=== PATIENT | female | born 1955 | race Two or more races ===

== ENCOUNTER 2024-04-25 08:27 | Inpatient (IN) | payer OTHER ==
[~2024-04-25] VITALS: Ht 165.1 cm; Wt 85.7 kg
[~2024-04-25 08:27] MED LIST: AMBIEN5 MG PO; FARXIGA5 MG PO; GABAPENTIN600 MG PO; HYOSCYAMINE0.125 M1 SL; JANUMET 50-1,01 EACH PO; LANTUS SOL100 UNIT/1 SQ; OXYC1TAB9 PO; PLAQUENIL; TAPAZOLE5 MG PO; ZETIA10 MG
[2024-04-25] MEDS ORDERED: FOLIC ACID20 MG PO (08:43)
[2024-04-25] MEDS ORDERED: VIVLODEX5 MG (08:43)
[2024-04-25] MEDS ORDERED: PANTOPRAZOLE SODIUM 40 MG/VIAL VIAL IV ONE (09:00)
[2024-04-25] MEDS ORDERED: 0.9 % SODIUM CHLORIDE 1,000 ML IV ONE (09:00)
[2024-04-25] MEDS ORDERED: NOREPINEPHRINE BITARTRATE 1 MG/ML AMPUL IV SCH (10:45)
[2024-04-25 10:48] LABS: HEMATOCRIT 29.9 % (36.0-45.00); HEMOGLOBIN 10.2 g/dL (12.0-15.00); MEAN CELL VOLUME 97.5 fL (80.00-100.00); MEAN CORPUSCULAR HEMOGLOBIN 33.1 pg (27.00-32.0); MEAN CORPUSCULAR HGB CONC 33.9 g/dl (32.0-36.0); PLATELET COUNT 208 K/uL (150-450); RED BLOOD COUNT 3.07 M/uL (4.00-6.00); RED CELL DISTRIBUTION WIDTH 13.5 % (11.5-14.5)
[2024-04-25 11:28] LABS: ABG PH 7.386 (7.35-7.45); ABG PO2 95.9 mmHg (80-100); ABG pCO2 31.7 mmHg (35-45); BASE EXCESS -5.2 mmol/l; BICARBONATE 18.6 mmol/l (23-25); SaO2 97.2 %; Tco2 19.6 mmol/l
[2024-04-25 11:35] LABS: ALBUMIN 3.7 gm/dL (3.4-5.0); BILIRUBIN TOTAL 0.53 mg/dL (0.3-1.2); CALCIUM 9.6 mg/dL (8.5-10.1); CREATININE SERUM 0.86 mg/dL (0.55-1.02); GFR 66.02; GLOBULINA 3.3 G/DL (2.4-3.5); POTASSIUM 4.78 mEq/L (3.5-5.1)
[2024-04-25 11:52] LABS: INR 1.03; PROTHROMBIN TIME 11.2 SECONDS (9.0-11.5)
[2024-04-25 12:14] LABS: allen test SATISFACTORY; o2 21 %; puncture site RADIAL LEFT
[2024-04-25 15:08] LABS: HEMATOCRIT 25.2 % (36.0-45.00); MEAN CELL VOLUME 97.6 fL (80.00-100.00); MEAN CORPUSCULAR HGB CONC 33.8 g/dl (32.0-36.0); PLATELET COUNT 169 K/uL (150-450); RED BLOOD COUNT 2.59 M/uL (4.00-6.00); RED CELL DISTRIBUTION WIDTH 13.6 % (11.5-14.5)
[2024-04-25 15:17] LABS: HEMOGLOBIN 8.5 g/dL (12.0-15.00); MEAN CORPUSCULAR HEMOGLOBIN 32.8 pg (27.00-32.0)
[2024-04-25 16:30] LABS: URINE APPEARANCE Clear; URINE BILIRRUBIN Negative (NEGATIVE); URINE BLOOD Negative; URINE COLOR Yellow; URINE KETONE Negative (NEGATIVE); URINE LEUKOCYTE Negative; URINE NITRATE Negative; URINE PROTEIN Negative (NEGATIVE); URINE UROBILINOGEN 0.2 E.U./dl
[2024-04-25] MEDS ORDERED: METRONIDAZOLE/SODIUM CHLORIDE 500 MG/100 ML PIGGYBACK IV ONE (16:30)
[2024-04-25 16:34] LABS: URINE BACTERIA 12.5 uL (0.0-1933); URINE EPITHELIAL CELLS 4.4 uL (0.0-38.8); URINE WBC 2.6 uL (0.0-23.2)
[2024-04-25 16:45] LABS: URINE CAST 0.15 uL (0.0-1.40); URINE GLUCOSE >=1000 MG/DL (NEGATIVE)
[2024-04-25] MEDS ORDERED: PANTOPRAZOLE SODIUM 40 MG/VIAL VIAL IV SCH (18:24)
[2024-04-25] MEDS ORDERED: CEFTRIAXONE SODIUM 2,000 MG in 0.9 % SODIUM CHLORIDE 100 ML IV SCH (18:24)
[2024-04-25] MEDS ORDERED: METRONIDAZOLE/SODIUM CHLORIDE 100 ML IV SCH (18:24)
[2024-04-25] MEDS ORDERED: ONDANSETRON HCL 4 MG in 0.9 % SODIUM CHLORIDE 50 ML IV PRN (18:30)
[2024-04-25] MEDS ORDERED: FUROsemide 20 MG/2 ML VIAL IV SCH (18:30)
[2024-04-25] MEDS ORDERED: INSULIN LISPRO 1,000 UNIT/10 ML UNITS SUBCUTANEO PRN (18:30)
[2024-04-25] MEDS ORDERED: 0.9 % SODIUM CHLORIDE 1,000 ML IV SCH (18:30)
[2024-04-25] MEDS ORDERED: ACETAMINOPHEN 500 MG GEL..CAP PO PRN (18:30)
[2024-04-25] MEDS ORDERED: HYOSCYAMINE SULFATE 0.125 MG TAB.SUBL PO ONE (18:30)
[2024-04-25] MEDS ORDERED: DEXTROSE 50 % IN WATER 0.5 G/ML DISP.SYRIN IV PRN (18:30)
[2024-04-26] VITALS (13 sets, daily range): BP systolic 87–139; BP diastolic 46–64; O2SAT 98–100
[2024-04-26] MEDS ORDERED: GABAPENTIN 300 MG CAPSULE PO PRN (19:15)
[2024-04-26] MEDS ORDERED: TEMAZEPAM 15 MG CAPSULE PO SCH (21:00)
[2024-04-27] VITALS (21 sets, daily range): BP systolic 85–149; BP diastolic 44–66; O2SAT 97–100
[2024-04-27 08:24] LABS: MEAN CELL VOLUME 94.4 fL (80.00-100.00); MEAN CORPUSCULAR HGB CONC 33.1 g/dl (32.0-36.0); RED BLOOD COUNT 2.33 M/uL (4.00-6.00); RED CELL DISTRIBUTION WIDTH 15.3 % (11.5-14.5)
[2024-04-27 08:27] LABS: MEAN CORPUSCULAR HEMOGLOBIN 31.3 pg (27.00-32.0)
[2024-04-27 08:29] LABS: HEMOGLOBIN 7.3 g/dL (12.0-15.00); PLATELET COUNT 126 K/uL (150-450)
[2024-04-27 08:55] LABS: ALBUMIN 2.6 gm/dL (3.4-5.0); BILIRUBIN TOTAL 0.52 mg/dL (0.3-1.2); CALCIUM 8.4 mg/dL (8.5-10.1); CREATININE SERUM 0.8 mg/dL (0.55-1.02); GFR 71.76; GLOBULINA 2.1 G/DL (2.4-3.5); POTASSIUM 4.81 mEq/L (3.5-5.1); TOTAL PROTEIN 4.7 gm/dL (6.4-8.2)
[2024-04-27 09:16] LABS: FREE TRIODOTIRONINE 0.96 pg/ml (2.18-3.98); T4 TOTAL 5.49 UG/DL (4.8-13.9); TSH 0.586 uIU/mL (0.358-3.74)
[2024-04-27 20:26] LABS: HEMATOCRIT 27.5 % (36.0-45.00); MEAN CELL VOLUME 91.3 fL (80.00-100.00); MEAN CORPUSCULAR HGB CONC 34.3 g/dl (32.0-36.0); RED BLOOD COUNT 3.01 M/uL (4.00-6.00); RED CELL DISTRIBUTION WIDTH 14.7 % (11.5-14.5)
[2024-04-27 20:27] LABS: MEAN CORPUSCULAR HEMOGLOBIN 31.2 pg (27.00-32.0)
[2024-04-27 20:28] LABS: HEMOGLOBIN 9.4 g/dL (12.0-15.00); PLATELET COUNT 122 K/uL (150-450)
[2024-04-28] VITALS (11 sets, daily range): BP systolic 102–137; BP diastolic 50–58; O2SAT 100
[2024-04-28 06:40] LABS: MEAN CELL VOLUME 90.2 fL (80.00-100.00); MEAN CORPUSCULAR HGB CONC 35.1 g/dl (32.0-36.0); RED BLOOD COUNT 2.62 M/uL (4.00-6.00); RED CELL DISTRIBUTION WIDTH 14.9 % (11.5-14.5)
[2024-04-28 07:37] LABS: HEMATOCRIT 23.6 % (36.0-45.00); MEAN CORPUSCULAR HEMOGLOBIN 31.6 pg (27.00-32.0); PLATELET COUNT 50 K/uL (150-450)
[2024-04-28 07:38] LABS: HEMOGLOBIN 8.3 g/dL (12.0-15.00)
[2024-04-28 09:06] LABS: CALCIUM 8.2 mg/dL (8.5-10.1); CREATININE SERUM 0.68 mg/dL (0.55-1.02); GFR 86.57; MAGNESIUM 1.7 mg/dL (1.8-2.4)
[2024-04-28 09:19] LABS: PHOSPHOROUS 1.7 mg/dL (2.5-4.9)
[2024-04-28] MEDS ORDERED: POTASSIUM PHOS,M-BASIC-D-BASIC 18 MM in 0.9 % SODIUM CHLORIDE 250 ML IV ONE (11:00)
[2024-04-28 12:08] LABS: COL EPI 100 SECONDS (82-175)
[2024-04-28] MEDS ORDERED: fentaNYL CITRATE 50 MCG/ML AMPUL IV PUSH ONE (15:15)
[2024-04-28] MEDS ORDERED: MIDAZOLAM HCL 2 MG/2 ML VIAL IV ONE (15:15)
[2024-04-28] MEDS ORDERED: DIPHENHYDRAMINE HCL 50 MG/ML VIAL 1ML IV ONE (15:15)
[2024-04-28] MEDS ORDERED: SOD FERRIC GLUC COMPLX/SUCROSE 62.5 MG in 0.9 % SODIUM CHLORIDE 50 ML IV SCH (17:00)
[2024-04-28] MEDS ORDERED: Cyanocobalamin/Mecobalamin 1 TAB.SL SL SCH (17:00)
[2024-04-28] MEDS ORDERED: FOLIC ACID 1 MG TABLET PO SCH (17:00)
[2024-04-28] MEDS ORDERED: FUROsemide 20 MG/2 ML VIAL IV SCH (18:30)
[2024-04-28] MEDS ORDERED: DEXTROSE 5 %-0.45 % SOD CHLORD 1,000 ML IV SCH (21:45)
[2024-04-29] VITALS (20 sets, daily range): BP systolic 89–134; BP diastolic 47–74; O2SAT 98–100
[2024-04-29 09:37] LABS: HEMATOCRIT 37.1 % (36.0-45.00); HEMOGLOBIN 12.6 g/dL (12.0-15.00); MEAN CELL VOLUME 89.9 fL (80.00-100.00); MEAN CORPUSCULAR HEMOGLOBIN 30.6 pg (27.00-32.0); MEAN CORPUSCULAR HGB CONC 34.1 g/dl (32.0-36.0); RED BLOOD COUNT 4.12 M/uL (4.00-6.00); RED CELL DISTRIBUTION WIDTH 16.2 % (11.5-14.5)
[2024-04-29 09:53] LABS: PLATELET COUNT 117 K/uL (150-450)
[2024-04-29 16:37] LABS: ob POSITIVE (NEGATIVE)
[2024-04-29] MEDS ORDERED: AMINO ACIDS 4.25 %/DEXTROSE 5% 1,000 ML PERIFERAL SCH (17:00)
[2024-04-29 17:31] LABS: HEMATOCRIT 25.3 % (36.0-45.00); MEAN CORPUSCULAR HGB CONC 33.9 g/dl (32.0-36.0); RED BLOOD COUNT 2.81 M/uL (4.00-6.00)
[2024-04-29 17:38] LABS: HEMOGLOBIN 8.6 g/dL (12.0-15.00); MEAN CORPUSCULAR HEMOGLOBIN 30.6 pg (27.00-32.0); PLATELET COUNT 111 K/uL (150-450)
[2024-04-29 18:00] LABS: MANUAL PLATELET COUNT 306
[2024-04-29 20:59] LABS: INR 1.16; PARTIAL THROMBOPLASTIN TIME 22.1 SECONDS (22.0-34.0); PROTHROMBIN TIME 12.5 SECONDS (9.0-11.5)
[2024-04-30 04:00] VITALS: BP 125/49; O2SAT 100
[2024-04-30 07:31] VITALS: BP 117/76; O2SAT 100
[2024-04-30 09:24] LABS: HEMATOCRIT 27.7 % (36.0-45.00); HEMOGLOBIN 9.8 g/dL (12.0-15.00); MEAN CELL VOLUME 85.9 fL (80.00-100.00); MEAN CORPUSCULAR HEMOGLOBIN 30.5 pg (27.00-32.0); MEAN CORPUSCULAR HGB CONC 35.5 g/dl (32.0-36.0); RED BLOOD COUNT 3.22 M/uL (4.00-6.00); RED CELL DISTRIBUTION WIDTH 15.4 % (11.5-14.5)
[2024-04-30 09:26] LABS: PLATELET COUNT 92 K/uL (150-450)
[2024-04-30 11:15] LABS: ALBUMIN 2.3 gm/dL (3.4-5.0); BILIRUBIN TOTAL 0.63 mg/dL (0.3-1.2); CREATININE SERUM 0.52 mg/dL (0.55-1.02); GFR 117.98; GLOBULINA 1.9 G/DL (2.4-3.5); POTASSIUM 3.63 mEq/L (3.5-5.1); TOTAL PROTEIN 4.2 gm/dL (6.4-8.2)
[2024-04-30 11:17] LABS: PHOSPHOROUS 1.5 mg/dL (2.5-4.9)
[2024-04-30 12:00] VITALS: BP 142/57; O2SAT 100
[2024-04-30] MEDS ORDERED: POTASSIUM PHOS,M-BASIC-D-BASIC 3 MM/ML VIAL IV NR (12:00)
[2024-04-30 12:38] LABS: D DIMER 4.01 MG/L
[2024-04-30 15:36] VITALS: BP 137/53; O2SAT 100
[2024-04-30] MEDS ORDERED: SODIUM CHLORIDE 0.45 % 1,000 ML IV SCH (19:30)
[2024-04-30 20:00] VITALS: BP 141/49; O2SAT 97
[2024-04-30 23:04] VITALS: BP 126/47; O2SAT 96
[2024-05-01 04:13] VITALS: BP 123/63; O2SAT 99
[2024-05-01 07:12] VITALS: BP 134/55; O2SAT 100
[2024-05-01] MEDS ORDERED: BUPIVACAINE HCL 30 ML VIAL IJ ONE (14:45)
[2024-05-01] MEDS ORDERED: LIDOCAINE HCL 1%/EPINEPHRINE 20ML VIAL IJ ONE (14:45)
[2024-05-01] MEDS ORDERED: OxyCODONE HCL 5 MG TABLET (ROXICODONE) PO PRN (17:45)
[2024-05-01 18:30] VITALS: BP 98/73; O2SAT 100
[2024-05-01] MEDS ORDERED: ACETAMINOPHEN 500 MG GEL..CAP PO SCH (20:00)
[2024-05-01 21:06] VITALS: BP 114/53; O2SAT 100
[2024-05-01 22:02] LABS: HEMATOCRIT 29.7 % (36.0-45.00); HEMOGLOBIN 10.1 g/dL (12.0-15.00); MEAN CELL VOLUME 88.7 fL (80.00-100.00); MEAN CORPUSCULAR HEMOGLOBIN 30.2 pg (27.00-32.0); MEAN CORPUSCULAR HGB CONC 34.1 g/dl (32.0-36.0); PLATELET COUNT 163 K/uL (150-450); RED BLOOD COUNT 3.35 M/uL (4.00-6.00); RED CELL DISTRIBUTION WIDTH 15.2 % (11.5-14.5)
[2024-05-01 23:24] VITALS: BP 117/54; O2SAT 100
[2024-05-02] VITALS (7 sets, daily range): BP systolic 102–137; BP diastolic 44–64; O2SAT 98–100
[2024-05-02] MEDS ORDERED: METOCLOPRAMIDE HCL 5 MG/ML VIAL IV SCH (01:00)
[2024-05-02] MEDS ORDERED: GABAPENTIN 300 MG CAPSULE PO SCH (01:00)
[2024-05-02 07:16] LABS: HEMATOCRIT 26.9 % (36.0-45.00); HEMOGLOBIN 9.4 g/dL (12.0-15.00); MEAN CELL VOLUME 88.4 fL (80.00-100.00); MEAN CORPUSCULAR HEMOGLOBIN 30.9 pg (27.00-32.0); PLATELET COUNT 139 K/uL (150-450); RED BLOOD COUNT 3.04 M/uL (4.00-6.00); RED CELL DISTRIBUTION WIDTH 15.3 % (11.5-14.5)
[2024-05-02 07:30] LABS: CALCIUM 7.6 mg/dL (8.5-10.1); CREATININE SERUM 0.74 mg/dL (0.55-1.02); GFR 78.52; POTASSIUM 3.78 mEq/L (3.5-5.1)
[2024-05-02 08:02] LABS: PHOSPHOROUS 1.4 mg/dL (2.5-4.9)
[2024-05-02] MEDS ORDERED: MAGNESIUM SULFATE IN WATER 4 GM/100 ML PIGGYBACK IV NR (08:45)
[2024-05-02] MEDS ORDERED: HYOSCYAMINE SULFATE 0.125 MG TAB.SUBL SL SCH (09:00)
[2024-05-02] MEDS ORDERED: POTASSIUM PHOS,M-BASIC-D-BASIC 3 MM/ML VIAL IV NR (09:51)
[2024-05-02] MEDS ORDERED: INSULIN NPH HUMAN ISOPHANE 1,000 UNITS/10 ML UNITS SUBCUTANEO SCH (21:00)
[2024-05-03 04:03] VITALS: BP 139/53; O2SAT 99
[2024-05-03 07:34] VITALS: BP 155/64; O2SAT 100
[2024-05-03] MEDS ORDERED: ENOXAPARIN SODIUM 40 MG/0.4 ML SYRINGE SUBCUTANEO SCH ×2 (09:00→17:00)
[2024-05-03] MEDS ORDERED: MEPERIDINE HCL/PF 25 MG/ML VIAL IV PRN (13:45)
[2024-05-03 13:46] VITALS: BP 147/44; O2SAT 100
[2024-05-03 15:11] VITALS: BP 147/49; O2SAT 100
[2024-05-03 19:00] VITALS: BP 126/77; O2SAT 100
[2024-05-03 23:04] VITALS: BP 135/57; O2SAT 100
[2024-05-04 04:00] VITALS: BP 109/46; O2SAT 100
[2024-05-04 08:22] LABS: MEAN CELL VOLUME 88.9 fL (80.00-100.00); MEAN CORPUSCULAR HGB CONC 34.7 g/dl (32.0-36.0); PLATELET COUNT 173 K/uL (150-450); RED BLOOD COUNT 2.42 M/uL (4.00-6.00); RED CELL DISTRIBUTION WIDTH 16.4 % (11.5-14.5)
[2024-05-04 08:24] LABS: HEMATOCRIT 21.5 % (36.0-45.00); MEAN CORPUSCULAR HEMOGLOBIN 30.9 pg (27.00-32.0)
[2024-05-04 08:42] LABS: HEMOGLOBIN 7.5 g/dL (12.0-15.00)
[2024-05-04 08:49] LABS: CALCIUM 8.4 mg/dL (8.5-10.1); CREATININE SERUM 0.62 mg/dL (0.55-1.02); GFR 96.31; MAGNESIUM 1.9 mg/dL (1.8-2.4); POTASSIUM 3.26 mEq/L (3.5-5.1)
[2024-05-04 09:06] LABS: FREE TRIODOTIRONINE 0.76 pg/ml (2.18-3.98); T4 TOTAL 5.8 UG/DL (4.8-13.9); TSH 0.569 uIU/mL (0.358-3.74)
[2024-05-04 09:46] LABS: PHOSPHOROUS 0.3 mg/dL (2.5-4.9)
[2024-05-04] MEDS ORDERED: POTASSIUM PHOS,M-BASIC-D-BASIC 3 MM/ML VIAL IV STA (10:29)
[2024-05-04 10:41] VITALS: BP 110/69; O2SAT 97
[2024-05-04] MEDS ORDERED: CLOTRIMAZOLE 10 MG TROCHE MM SCH (13:00)
[2024-05-04 17:54] VITALS: BP 120/65; O2SAT 99
[2024-05-05 00:53] VITALS: BP 142/66; O2SAT 99
[2024-05-05 08:01] VITALS: BP 127/77; O2SAT 96
[2024-05-05 16:00] VITALS: BP 127/67; O2SAT 100
[2024-05-05] MEDS ORDERED: ZOLPIDEM TARTRATE 5 MG TABLET PO SCH (21:00)
[2024-05-05 23:00] VITALS: BP 147/66; O2SAT 97
[2024-05-06] MEDS ORDERED: INSULIN NPH HUMAN ISOPHANE 1,000 UNITS/10 ML UNITS SUBCUTANEO SCH (05:51)
[2024-05-06 08:30] VITALS: BP 122/64; O2SAT 99
[2024-05-06 16:42] VITALS: BP 132/78; O2SAT 98
[2024-05-06 22:01] LABS: HEMATOCRIT 31.9 % (36.0-45.00); HEMOGLOBIN 10.9 g/dL (12.0-15.00); MEAN CELL VOLUME 87.8 fL (80.00-100.00); MEAN CORPUSCULAR HEMOGLOBIN 30.1 pg (27.00-32.0); MEAN CORPUSCULAR HGB CONC 34.3 g/dl (32.0-36.0); RED BLOOD COUNT 3.63 M/uL (4.00-6.00); RED CELL DISTRIBUTION WIDTH 16.1 % (11.5-14.5)
[2024-05-06 22:42] LABS: PLATELET COUNT 295 K/uL (150-450)
[2024-05-07 00:34] VITALS: BP 126/73; O2SAT 95
[2024-05-07 08:40] VITALS: BP 138/69; O2SAT 100
[2024-05-07] MEDS ORDERED: MEROPENEM 500 MG/VIAL VIAL IV SCH (09:33)
[2024-05-07 09:49] LABS: HEMATOCRIT 29.9 % (36.0-45.00); HEMOGLOBIN 10.4 g/dL (12.0-15.00); MEAN CORPUSCULAR HEMOGLOBIN 30.7 pg (27.00-32.0); MEAN CORPUSCULAR HGB CONC 34.9 g/dl (32.0-36.0); PLATELET COUNT 306 K/uL (150-450); RED BLOOD COUNT 3.39 M/uL (4.00-6.00); RED CELL DISTRIBUTION WIDTH 15.7 % (11.5-14.5)
[2024-05-07] MEDS ORDERED: LINEZOLID IN DEXTROSE 5% 600 MG/300 ML PIGGYBAG IV NR (10:00)
[2024-05-07] MEDS ORDERED: FLUCONAZOLE IN NACL,ISO-OSM 100 ML IV SCH (10:00)
[2024-05-07 10:55] LABS: ALBUMIN 1.5 gm/dL (3.4-5.0); BILIRUBIN TOTAL 0.44 mg/dL (0.3-1.2); CALCIUM 7.8 mg/dL (8.5-10.1); CREATININE SERUM 0.37 mg/dL (0.55-1.02); GFR 174.73; GLOBULINA 3.2 G/DL (2.4-3.5); TOTAL PROTEIN 4.7 gm/dL (6.4-8.2)
[2024-05-07 11:12] LABS: POTASSIUM 2.99 mEq/L (3.5-5.1)
[2024-05-07 13:26] LABS: URINE APPEARANCE Clear; URINE BILIRRUBIN Negative (NEGATIVE); URINE BLOOD Small; URINE COLOR Yellow; URINE KETONE 15 (NEGATIVE); URINE LEUKOCYTE Negative; URINE NITRATE Negative; URINE PROTEIN 30 (NEGATIVE); URINE UROBILINOGEN 0.2 E.U./dl
[2024-05-07 13:27] LABS: URINE BACTERIA 11.3 uL (0.0-1933); URINE RBC 842.8 uL (0.0-20.8); URINE WBC 14.2 uL (0.0-23.2)
[2024-05-07 13:41] LABS: URINE CAST 0.61 uL (0.0-1.40); URINE GLUCOSE >=1000 MG/DL (NEGATIVE); URINE YEAST MANY /hpf
[2024-05-07 15:15] LABS: PH,URINE 6.5 (5.0-8.0); URINE APPEARANCE Clear; URINE BILIRRUBIN Negative (NEGATIVE); URINE BLOOD Negative; URINE COLOR Yellow; URINE KETONE Trace (NEGATIVE); URINE LEUKOCYTE Negative; URINE NITRATE Negative; URINE PROTEIN 30 (NEGATIVE); URINE UROBILINOGEN 0.2 E.U./dl
[2024-05-07 15:17] LABS: URINE BACTERIA 16.3 uL (0.0-1933); URINE EPITHELIAL CELLS 6.8 uL (0.0-38.8); URINE RBC 240.4 uL (0.0-20.8); URINE WBC 35.5 uL (0.0-23.2)
[2024-05-07] MEDS ORDERED: POTASSIUM CHLORIDE IN WATER 40 MEQ/100 ML PIGGYBAG IV NR (16:00)
[2024-05-07 16:02] LABS: URINE GLUCOSE >=1000 MG/DL (NEGATIVE); URINE YEAST FEW /hpf
[2024-05-07 17:22] VITALS: BP 157/70; O2SAT 99
[2024-05-07] MEDS ORDERED: LINEZOLID IN DEXTROSE 5% 600 MG/300 ML PIGGYBAG IV SCH (21:00)
[2024-05-08 00:25] VITALS: BP 121/58; O2SAT 99
[2024-05-08 08:00] VITALS: BP 137/75; O2SAT 99
[2024-05-08] MEDS ORDERED: INSULIN NPH HUMAN ISOPHANE 1,000 UNITS/10 ML UNITS SUBCUTANEO SCH (09:00)
[2024-05-08] MEDS ORDERED: FLUCONAZOLE IN NACL,ISO-OSM 100 ML IV SCH (09:00)
[2024-05-08] MEDS ORDERED: TRAMADOL HCL 50 MG TABLET PO PRN (09:45)
[2024-05-08] MEDS ORDERED: VANCOMYCIN HCL 5 MG/ML REDILUIDO IV STA (13:10)
[2024-05-08 18:19] VITALS: BP 161/70; O2SAT 99
[2024-05-08] MEDS ORDERED: VANCOMYCIN HCL 5 MG/ML REDILUIDO IV SCH (21:00)
[2024-05-09 01:28] VITALS: BP 121/75; O2SAT 97
[2024-05-09 08:06] VITALS: BP 153/67; O2SAT 96
[2024-05-09] MEDS ORDERED: SOD FERRIC GLUC COMPLX/SUCROSE 62.5 MG/5 ML AMPUL IV SCH (17:48)
[2024-05-09] MEDS ORDERED: IRON FUM,PS/FOLIC ACID/VITC/B3 1 CAP CAPSULE PO SCH (17:48)
[2024-05-10 01:00] VITALS: BP 155/71; O2SAT 97
[2024-05-10 08:22] VITALS: BP 137/63; O2SAT 100
[2024-05-10 08:29] LABS: HEMATOCRIT 28.5 % (36.0-45.00); MEAN CELL VOLUME 89.3 fL (80.00-100.00); MEAN CORPUSCULAR HEMOGLOBIN 30.7 pg (27.00-32.0); MEAN CORPUSCULAR HGB CONC 34.4 g/dl (32.0-36.0); PLATELET COUNT 364 K/uL (150-450); RED BLOOD COUNT 3.19 M/uL (4.00-6.00); RED CELL DISTRIBUTION WIDTH 16.3 % (11.5-14.5)
[2024-05-10 08:37] LABS: ALBUMIN 1.5 gm/dL (3.4-5.0); BILIRUBIN TOTAL 0.34 mg/dL (0.3-1.2); CALCIUM 8.9 mg/dL (8.5-10.1); CREATININE SERUM 0.65 mg/dL (0.55-1.02); GFR 91.19; GLOBULINA 3.4 G/DL (2.4-3.5); TOTAL PROTEIN 4.9 gm/dL (6.4-8.2); URIC ACID 3.4 mg/dL (2.5-7.5)
[2024-05-10 08:50] LABS: HEMOGLOBIN 9.8 g/dL (12.0-15.00)
[2024-05-10 08:57] LABS: C-REACTIVE PROTEIN 15.7 MG/DL (0.00-0.29)
[2024-05-10] MEDS ORDERED: DIATRIZOATE MEGLUMINE, SODIUM 30 ML BOTTLE PO STA (11:04)
[2024-05-10] MEDS ORDERED: MEROPENEM 500 MG/VIAL VIAL IV NR (16:00)
[2024-05-10 18:21] VITALS: BP 168/80; O2SAT 98
[2024-05-11] VITALS: BP 155/65; O2SAT 97
[2024-05-11 08:20] VITALS: BP 150/74; O2SAT 97
[2024-05-11] MEDS ORDERED: INSULIN NPH HUMAN ISOPHANE 1,000 UNITS/10 ML UNITS SUBCUTANEO SCH ×2 (09:00→21:00)
[2024-05-11 14:30] LABS: PH,URINE 5.5 (5.0-8.0); URINE APPEARANCE Clear; URINE BILIRRUBIN Negative (NEGATIVE); URINE BLOOD Negative; URINE COLOR Yellow; URINE KETONE Negative (NEGATIVE); URINE LEUKOCYTE Trace; URINE NITRATE Negative; URINE PROTEIN 30 (NEGATIVE); URINE UROBILINOGEN 0.2 E.U./dl
[2024-05-11 14:30] LABS: PH,URINE 5.5 (5.0-8.0); URINE APPEARANCE Clear; URINE BILIRRUBIN Negative (NEGATIVE); URINE BLOOD Negative; URINE COLOR Yellow; URINE KETONE Negative (NEGATIVE); URINE LEUKOCYTE Negative; URINE NITRATE Negative; URINE PROTEIN Trace (NEGATIVE); URINE UROBILINOGEN 0.2 E.U./dl
[2024-05-11 14:34] LABS: URINE BACTERIA 56.6 uL (0.0-1933); URINE CAST 1.52 uL (0.0-1.40); URINE EPITHELIAL CELLS 26.1 uL (0.0-38.8); URINE RBC 22.1 uL (0.0-20.8); URINE WBC 83.9 uL (0.0-23.2)
[2024-05-11 14:34] LABS: URINE BACTERIA 23.9 uL (0.0-1933); URINE EPITHELIAL CELLS 19.6 uL (0.0-38.8); URINE RBC 42.1 uL (0.0-20.8); URINE WBC 85.4 uL (0.0-23.2)
[2024-05-11 14:36] LABS: URINE GLUCOSE >=1000 MG/DL (NEGATIVE)
[2024-05-11 14:45] LABS: URINE CAST 0.76 uL (0.0-1.40); URINE GLUCOSE >=1000 MG/DL (NEGATIVE)
[2024-05-11 14:46] LABS: URINE EPITHELIAL CELLS 0-4 /HPF; URINE YEAST MODERATE /hpf
[2024-05-11 15:55] VITALS: BP 136/63; O2SAT 99
[2024-05-12] VITALS: BP 140/65; O2SAT 98
[2024-05-12 07:07] LABS: HEMATOCRIT 31.6 % (36.0-45.00); HEMOGLOBIN 10.5 g/dL (12.0-15.00); MEAN CELL VOLUME 90.7 fL (80.00-100.00); MEAN CORPUSCULAR HGB CONC 33.1 g/dl (32.0-36.0); PLATELET COUNT 484 K/uL (150-450); RED BLOOD COUNT 3.49 M/uL (4.00-6.00); RED CELL DISTRIBUTION WIDTH 16.2 % (11.5-14.5)
[2024-05-12 07:23] LABS: ALBUMIN 1.7 gm/dL (3.4-5.0); BILIRUBIN TOTAL 0.37 mg/dL (0.3-1.2); CREATININE SERUM 0.55 mg/dL (0.55-1.02); GFR 110.59; GLOBULINA 3.7 G/DL (2.4-3.5); POTASSIUM 4.65 mEq/L (3.5-5.1); TOTAL PROTEIN 5.4 gm/dL (6.4-8.2)
[2024-05-12] MEDS ORDERED: INSULIN NPH HUMAN ISOPHANE 1,000 UNITS/10 ML UNITS SUBCUTANEO SCH ×2 (08:00→21:00)
[2024-05-12 08:52] VITALS: BP 170/65; O2SAT 97
[2024-05-12 16:16] VITALS: BP 150/67; O2SAT 98
[2024-05-12] MEDS ORDERED: MIDAZOLAM HCL 2 MG/2 ML VIAL IV PUSH ONE (19:15)
[2024-05-12] MEDS ORDERED: fentaNYL CITRATE 50 MCG/ML AMPUL IV PUSH ONE (19:15)
[2024-05-12] MEDS ORDERED: VANCOMYCIN HCL 1,000 MG VIAL IV SCH (21:00)
[2024-05-12] MEDS ORDERED: MORPHINE SULFATE 4 MG/ML VIAL IV PRN (22:00)
[2024-05-13 00:25] VITALS: BP 113/64; O2SAT 97
[2024-05-13] MEDS ORDERED: MORPHINE SULFATE 2 MG/ML CARTRIDGE IV PRN (07:00)
[2024-05-13 08:00] VITALS: BP 129/65; O2SAT 98
[2024-05-13] MEDS ORDERED: FLUCONAZOLE IN NACL,ISO-OSM 200 ML IV SCH (09:00)
[2024-05-13 16:00] VITALS: BP 126/65; O2SAT 95
[2024-05-14 01:16] VITALS: BP 153/67; O2SAT 97
[2024-05-14 07:45] LABS: HEMATOCRIT 32.2 % (36.0-45.00); HEMOGLOBIN 10.9 g/dL (12.0-15.00); MEAN CELL VOLUME 89.7 fL (80.00-100.00); MEAN CORPUSCULAR HEMOGLOBIN 30.4 pg (27.00-32.0); MEAN CORPUSCULAR HGB CONC 33.8 g/dl (32.0-36.0); PLATELET COUNT 514 K/uL (150-450); RED BLOOD COUNT 3.59 M/uL (4.00-6.00); RED CELL DISTRIBUTION WIDTH 16.4 % (11.5-14.5)
[2024-05-14] MEDS ORDERED: INSULIN NPH HUMAN ISOPHANE 1,000 UNITS/10 ML UNITS SUBCUTANEO SCH ×2 (08:00→21:00)
[2024-05-14 08:24] LABS: ALBUMIN 1.9 gm/dL (3.4-5.0); BILIRUBIN TOTAL 0.42 mg/dL (0.3-1.2); CALCIUM 9.3 mg/dL (8.5-10.1); CREATININE SERUM 0.53 mg/dL (0.55-1.02); GFR 115.41; GLOBULINA 3.9 G/DL (2.4-3.5); POTASSIUM 4.63 mEq/L (3.5-5.1); TOTAL PROTEIN 5.8 gm/dL (6.4-8.2)
[2024-05-14 08:28] LABS: C-REACTIVE PROTEIN 4.47 MG/DL (0.00-0.29)
[2024-05-14 10:01] VITALS: BP 124/84; O2SAT 98
[2024-05-14 16:00] VITALS: BP 139/75; O2SAT 95
[2024-05-14] MEDS ORDERED: KETOROLAC TROMETHAMINE 30 MG VIAL IV SCH (21:00)
[2024-05-15 01:54] VITALS: BP 123/60; O2SAT 97
[2024-05-15] MEDS ORDERED: INSULIN LISPRO 1,000 UNIT/10 ML UNITS SUBCUTANEO PRN (07:30)
[2024-05-15 09:15] VITALS: BP 124/72; O2SAT 98
[2024-05-15] MEDS ORDERED: VANCOMYCIN HCL 1,000 MG VIAL IV NR (13:00)
[2024-05-15 15:40] VITALS: BP 161/72; O2SAT 100
[2024-05-16 00:58] VITALS: BP 149/71; O2SAT 100
[2024-05-16] MEDS ORDERED: VANCOMYCIN HCL 1,000 MG VIAL IV SCH (05:00)
[2024-05-16 07:42] LABS: BILIRUBIN TOTAL 0.24 mg/dL (0.3-1.2); CALCIUM 9.4 mg/dL (8.5-10.1); CREATININE SERUM 0.6 mg/dL (0.55-1.02); GFR 100.02; GLOBULINA 4.2 G/DL (2.4-3.5); POTASSIUM 4.73 mEq/L (3.5-5.1); TOTAL PROTEIN 6.2 gm/dL (6.4-8.2)
[2024-05-16 07:43] LABS: C-REACTIVE PROTEIN 2.51 MG/DL (0.00-0.29)
[2024-05-16 08:00] VITALS: BP 160/75; O2SAT 99
[2024-05-16] MEDS ORDERED: FLUCONAZOLE IN NACL,ISO-OSM 200 ML IV SCH (09:00)
[2024-05-16] MEDS ORDERED: INSULIN NPH HUMAN ISOPHANE 1,000 UNITS/10 ML UNITS SUBCUTANEO SCH ×2 (09:30→21:00)
[2024-05-16 13:32] LABS: PH,URINE 5.5 (5.0-8.0); URINE APPEARANCE Cloudy; URINE BILIRRUBIN Negative (NEGATIVE); URINE BLOOD Moderate; URINE COLOR Yellow; URINE KETONE Negative (NEGATIVE); URINE LEUKOCYTE Small; URINE NITRATE Negative; URINE PROTEIN Trace (NEGATIVE); URINE UROBILINOGEN 0.2 E.U./dl
[2024-05-16 13:37] LABS: URINE BACTERIA 90.7 uL (0.0-1933); URINE EPITHELIAL CELLS 40.1 uL (0.0-38.8); URINE RBC 234.9 uL (0.0-20.8); URINE WBC 186.9 uL (0.0-23.2)
[2024-05-16 14:03] LABS: URINE GLUCOSE >=1000 MG/DL (NEGATIVE)
[2024-05-16 14:05] LABS: URINE YEAST MANY /hpf
[2024-05-16 16:00] VITALS: BP 165/72; O2SAT 99
[2024-05-16 19:00] VITALS: BP 126/66
[2024-05-17 00:58] VITALS: BP 140/63; O2SAT 98
[2024-05-17 10:01] VITALS: BP 147/70; O2SAT 100
[2024-05-17 10:04] VITALS: BP 147/70; O2SAT 100
[2024-05-17 16:25] VITALS: BP 141/64; O2SAT 96
[2024-05-17] MEDS ORDERED: CYCLOBENZAPRINE HCL 5 MG TABLET PO SCH (21:00)
[2024-05-18 01:09] VITALS: BP 122/61; O2SAT 96
[2024-05-18 07:39] LABS: HEMATOCRIT 30.3 % (36.0-45.00); HEMOGLOBIN 10.4 g/dL (12.0-15.00); MEAN CELL VOLUME 91.9 fL (80.00-100.00); MEAN CORPUSCULAR HEMOGLOBIN 31.5 pg (27.00-32.0); MEAN CORPUSCULAR HGB CONC 34.2 g/dl (32.0-36.0); PLATELET COUNT 429 K/uL (150-450); RED BLOOD COUNT 3.29 M/uL (4.00-6.00); RED CELL DISTRIBUTION WIDTH 16.9 % (11.5-14.5)
[2024-05-18 08:13] LABS: CALCIUM 9.8 mg/dL (8.5-10.1); CREATININE SERUM 0.68 mg/dL (0.55-1.02); GFR 86.57; POTASSIUM 4.94 mEq/L (3.5-5.1)
[2024-05-18 10:25] VITALS: BP 172/76; O2SAT 98
[2024-05-18 16:00] VITALS: BP 129/69; O2SAT 98
[2024-05-18] MEDS ORDERED: AMPICILLIN SODIUM 2,000 MG in 0.9 % SODIUM CHLORIDE 100 ML IV SCH (17:00)
[2024-05-18 23:53] VITALS: BP 144/65; O2SAT 99
[2024-05-19 08:22] VITALS: BP 122/72; O2SAT 97
[2024-05-19 16:18] VITALS: BP 132/65; O2SAT 95
[2024-05-19 23:38] LABS: PH,URINE 5.5 (5.0-8.0); URINE APPEARANCE Clear; URINE BILIRRUBIN Negative (NEGATIVE); URINE BLOOD Moderate; URINE COLOR Yellow; URINE KETONE Negative (NEGATIVE); URINE LEUKOCYTE Negative; URINE NITRATE Negative; URINE PROTEIN Trace (NEGATIVE); URINE UROBILINOGEN 0.2 E.U./dl
[2024-05-19 23:41] LABS: URINE BACTERIA 7.5 uL (0.0-1933); URINE EPITHELIAL CELLS 7.1 uL (0.0-38.8); URINE RBC 74.3 uL (0.0-20.8); URINE WBC 108.3 uL (0.0-23.2)
[2024-05-20] VITALS: BP 117/73; O2SAT 96
[2024-05-20 00:03] LABS: URINE GLUCOSE >=1000 MG/DL (NEGATIVE)
[2024-05-20 08:19] VITALS: BP 141/69; O2SAT 100
[2024-05-20 18:23] VITALS: BP 128/75; O2SAT 97
[2024-05-20] MEDS ORDERED: INSULIN NPH HUMAN ISOPHANE 1,000 UNITS/10 ML UNITS SUBCUTANEO SCH (21:00)
[2024-05-20] MEDS ORDERED: ZOLPIDEM TARTRATE 5 MG TABLET PO SCH (21:00)
[2024-05-21] VITALS: BP 154/67; O2SAT 99
[2024-05-21] MEDS ORDERED: INSULIN NPH HUMAN ISOPHANE 1,000 UNITS/10 ML UNITS SUBCUTANEO SCH (08:00)
[2024-05-21 08:50] VITALS: BP 138/65; O2SAT 98
[2024-05-21] MEDS ORDERED: DIATRIZOATE MEGLUMINE, SODIUM 30 ML BOTTLE PO NR (09:00)
[2024-05-21 11:37] LABS: ALBUMIN 2.1 gm/dL (3.4-5.0); BILIRUBIN TOTAL 0.32 mg/dL (0.3-1.2); CALCIUM 9.5 mg/dL (8.5-10.1); CREATININE SERUM 0.48 mg/dL (0.55-1.02); GFR 129.4; POTASSIUM 4.46 mEq/L (3.5-5.1); TOTAL PROTEIN 6.1 gm/dL (6.4-8.2)
[2024-05-21 11:44] LABS: C-REACTIVE PROTEIN 2.02 MG/DL (0.00-0.29)
[2024-05-21 16:00] VITALS: BP 131/76; O2SAT 97
[2024-05-22] VITALS: BP 131/76; O2SAT 95
[2024-05-22 08:34] VITALS: BP 115/55; O2SAT 94
[2024-05-22 16:00] VITALS: BP 133/62; O2SAT 97
[2024-05-22] MEDS ORDERED: METROnidazole 500 MG TABLET PO SCH (17:00)
[2024-05-22] MEDS ORDERED: INSULIN NPH HUMAN ISOPHANE 1,000 UNITS/10 ML UNITS SUBCUTANEO SCH (21:00)
[2024-05-23] VITALS: BP 111/63; O2SAT 97
[2024-05-23 08:00] VITALS: BP 119/81; O2SAT 97
[2024-05-23] MEDS ORDERED: levoFLOXacin IN DEXTROSE 5 % 5 MG/ML PIGGYBAG IV SCH (09:00)
[2024-05-23 12:01] LABS: PH,URINE 5.5 (5.0-8.0); URINE APPEARANCE Clear; URINE BILIRRUBIN Negative (NEGATIVE); URINE BLOOD Negative; URINE COLOR Yellow; URINE KETONE Negative (NEGATIVE); URINE LEUKOCYTE Trace; URINE NITRATE Negative; URINE PROTEIN 30 (NEGATIVE); URINE UROBILINOGEN 0.2 E.U./dl
[2024-05-23 12:04] LABS: URINE BACTERIA 30.2 uL (0.0-1933); URINE EPITHELIAL CELLS 19.6 uL (0.0-38.8); URINE RBC 36.1 uL (0.0-20.8); URINE WBC 75.6 uL (0.0-23.2)
[2024-05-23 12:30] LABS: URINE GLUCOSE 250 MG/DL (NEGATIVE)
[2024-05-23 16:13] VITALS: BP 125/77; O2SAT 98
[2024-05-24 00:52] VITALS: BP 124/74; O2SAT 99
[2024-05-24 08:00] VITALS: BP 133/70; O2SAT 96
[2024-05-24 08:36] LABS: HEMATOCRIT 31.5 % (36.0-45.00); HEMOGLOBIN 10.6 g/dL (12.0-15.00); MEAN CELL VOLUME 92.2 fL (80.00-100.00); MEAN CORPUSCULAR HGB CONC 33.6 g/dl (32.0-36.0); PLATELET COUNT 304 K/uL (150-450); RED BLOOD COUNT 3.41 M/uL (4.00-6.00); RED CELL DISTRIBUTION WIDTH 17.3 % (11.5-14.5)
[2024-05-24 08:42] LABS: ALBUMIN 2.2 gm/dL (3.4-5.0); BILIRUBIN TOTAL 0.3 mg/dL (0.3-1.2); CREATININE SERUM 0.54 mg/dL (0.55-1.02); GFR 112.95; POTASSIUM 3.97 mEq/L (3.5-5.1); TOTAL PROTEIN 6.2 gm/dL (6.4-8.2)
[2024-05-24 08:46] LABS: C-REACTIVE PROTEIN 2.37 MG/DL (0.00-0.29)
[2024-05-24 10:20] LABS: ERYTHROCYTE SEDIMENTATION RATE 99 mm/hr
[2024-05-24 18:58] VITALS: BP 131/93; O2SAT 98
[2024-05-25 00:51] VITALS: BP 161/84; O2SAT 100
[2024-05-25 02:15] VITALS: BP 149/79; O2SAT 98
[2024-05-25 08:00] VITALS: BP 134/63; O2SAT 100
[2024-05-25] MEDS ORDERED: INSULIN NPH HUM/REG INSULIN HM 1,000 UNIT/10 ML UNITS SUBCUTANEO SCH (08:00)
[2024-05-25 16:00] VITALS: BP 143/80; O2SAT 100
[2024-05-26 00:47] VITALS: BP 130/74; O2SAT 100
[2024-05-26 08:31] VITALS: BP 128/59; O2SAT 98
[2024-05-27] VITALS: BP 116/74; O2SAT 95
[2024-05-27] MEDS ORDERED: INSULIN NPH HUM/REG INSULIN HM 1,000 UNIT/10 ML UNITS SUBCUTANEO SCH (08:00)
[2024-05-27 09:30] VITALS: BP 145/68; O2SAT 100
[2024-05-27 16:52] VITALS: BP 143/67; O2SAT 100
[2024-05-27] MEDS ORDERED: TRAMADOL HCL 50 MG TABLET PO PRN (20:30)
[2024-05-28] VITALS: BP 124/62; O2SAT 100
[2024-05-28 08:00] VITALS: BP 135/61; O2SAT 100
[2024-05-28 16:00] VITALS: BP 130/76; O2SAT 97
[2024-05-28] MEDS ORDERED: SOD FERRIC GLUC COMPLX/SUCROSE 62.5 MG/5 ML AMPUL IV SCH (17:00)
[2024-05-29] VITALS: BP 121/78; O2SAT 98
[2024-05-29 08:00] VITALS: BP 141/65; O2SAT 97
[2024-05-29] MEDS ORDERED: levoFLOXacin 750 MG TABLET PO SCH (09:00)
[2024-05-29] MEDS ORDERED: FLUCONAZOLE 200 MG TABLET PO SCH (09:00)
[2024-05-29 11:27] LABS: HEMATOCRIT 32.9 % (36.0-45.00); HEMOGLOBIN 11.1 g/dL (12.0-15.00); MEAN CELL VOLUME 93.1 fL (80.00-100.00); MEAN CORPUSCULAR HEMOGLOBIN 31.4 pg (27.00-32.0); MEAN CORPUSCULAR HGB CONC 33.7 g/dl (32.0-36.0); PLATELET COUNT 223 K/uL (150-450); RED BLOOD COUNT 3.53 M/uL (4.00-6.00); RED CELL DISTRIBUTION WIDTH 17.9 % (11.5-14.5)
[2024-05-29 12:31] LABS: ALBUMIN 2.6 gm/dL (3.4-5.0); BILIRUBIN TOTAL 0.38 mg/dL (0.3-1.2); CALCIUM 9.9 mg/dL (8.5-10.1); CREATININE SERUM 0.8 mg/dL (0.55-1.02); GFR 71.76; POTASSIUM 4.22 mEq/L (3.5-5.1); TOTAL PROTEIN 6.6 gm/dL (6.4-8.2)
[2024-05-29] MEDS ORDERED: GABAPENTIN300 MG PO (13:06)
[2024-05-29] MEDS ORDERED: FARXIGA5 MG PO (13:06)
[2024-05-29] MEDS ORDERED: FOLIC ACID1 MG PO (13:06)
[2024-05-29] MEDS ORDERED: Neurin-Sl Tablet Sl SL (13:06)
[2024-05-29] MEDS ORDERED: LEVOFLOXACIN750 MG PO (13:06)
[2024-05-29] MEDS ORDERED: LANTUS SOL100 UNIT/1 SUBCUTANEO (13:06)
[2024-05-29] MEDS ORDERED: LIPITOR20 MG PO (13:06)
[2024-05-29] MEDS ORDERED: JANUMET 50-1,01 EACH PO (13:06)
[2024-05-29] MEDS ORDERED: Diflucan 200MG TABLE PO (13:06)
[2024-05-29] MEDS ORDERED: INTEGRA F CAPS1 EACH PO (13:06)
[2024-05-29] MEDS ORDERED: HYDROXYCHLOROQ200 MG PO (13:06)
[2024-05-29] MEDS ORDERED: ZOLPIDEM TARTRAT5 MG PO (13:06)
== END 2024-05-29 15:31 | disposition home or self-care (01) | DRG 330 ==
LOC: ER 08:29 → ICU 18:45 → ICU-2 18:45 → ICU 04-29 18:25 → SURG 05-04 06:05 → SURH 05-15 08:49
PROVIDERS: General Practice; Internal Medicine; Internal Medicine Cardiovascular Disease; Internal Medicine Endocrinology, Diabetes & Metabolism; Internal Medicine Geriatric Medicine; Internal Medicine Hematology & Oncology; Internal Medicine Infectious Disease; Specialist; Surgery; ADMIT Internal Medicine; ATTEND Internal Medicine
PROC: BW21YZZ Computerized Tomography (CT Scan) of Abdomen and Pelvis using Other Contrast (ICD-10-PCS; 2024-04-25)
PROC: BW28ZZZ Computerized Tomography (CT Scan) of Head (ICD-10-PCS; 2024-04-25)
PROC: 02HV33Z Insertion of Infusion Device into Superior Vena Cava, Percutaneous Approach (ICD-10-PCS; 2024-04-27)
PROC: 30233L1 Transfusion of Nonautologous Fresh Plasma into Peripheral Vein, Percutaneous Approach (ICD-10-PCS; 2024-04-27)
PROC: 0DB78ZX Excision of Stomach, Pylorus, Via Natural or Artificial Opening Endoscopic, Diagnostic (ICD-10-PCS; 2024-04-28)
PROC: 0DBK8ZX Excision of Ascending Colon, Via Natural or Artificial Opening Endoscopic, Diagnostic (ICD-10-PCS; 2024-04-28)
PROC: 30233N1 Transfusion of Nonautologous Red Blood Cells into Peripheral Vein, Percutaneous Approach (ICD-10-PCS; 2024-04-29)
PROC: 0DNW4ZZ Release Peritoneum, Percutaneous Endoscopic Approach (ICD-10-PCS; 2024-05-01)
PROC: 0TN74ZZ Release Left Ureter, Percutaneous Endoscopic Approach (ICD-10-PCS; 2024-05-01)
PROC: 0DJD8ZZ Inspection of Lower Intestinal Tract, Via Natural or Artificial Opening Endoscopic (ICD-10-PCS; 2024-05-01)
PROC: 0DTE4ZZ Resection of Large Intestine, Percutaneous Endoscopic Approach (ICD-10-PCS; principal; 2024-05-01 13:30)
PROC: B246ZZZ Ultrasonography of Right and Left Heart (ICD-10-PCS; 2024-05-09)
PROC: BW21YZZ Computerized Tomography (CT Scan) of Abdomen and Pelvis using Other Contrast (ICD-10-PCS; 2024-05-10)
PROC: 0W9F3ZZ Drainage of Abdominal Wall, Percutaneous Approach (ICD-10-PCS; 2024-05-12)
DX: K57.31 Diverticulosis of large intestine without perforation or abscess with bleeding (principal); L02.211 Cutaneous abscess of abdominal wall; N39.0 Urinary tract infection, site not specified; R65.10 Systemic inflammatory response syndrome (SIRS) of non-infectious origin without acute organ dysfunction; R78.81 Bacteremia; T81.43XA Infection following a procedure, organ and space surgical site, initial encounter; K31.9 Disease of stomach and duodenum, unspecified; K62.5 Hemorrhage of anus and rectum; Z79.4 Long term (current) use of insulin; E03.8 Other specified hypothyroidism; D64.89 Other specified anemias; D75.839 Thrombocytosis, unspecified; K29.50 Unspecified chronic gastritis without bleeding; K44.9 Diaphragmatic hernia without obstruction or gangrene; E87.6 Hypokalemia; E83.42 Hypomagnesemia; M32.9 Systemic lupus erythematosus, unspecified; Z93.2 Ileostomy status; E83.39 Other disorders of phosphorus metabolism; E11.65 Type 2 diabetes mellitus with hyperglycemia; E86.0 Dehydration; B96.29 Other Escherichia coli [E. coli] as the cause of diseases classified elsewhere; B95.2 Enterococcus as the cause of diseases classified elsewhere

== ENCOUNTER 2024-06-07 14:10 | Inpatient (IN) | payer OTHER ==
[~2024-06-07] VITALS: Ht 165.1 cm; Wt 75.3 kg
[~2024-06-07 14:10] MED LIST changes: +Diflucan 200MG TABLE PO; +FOLIC ACID1 MG PO; +FOLIC ACID20 MG PO; +GABAPENTIN300 MG PO; +HYDROXYCHLOROQ200 MG PO; +INTEGRA F CAPS1 EACH PO; +LANTUS SOL100 UNIT/1 SUBCUTANEO; +LEVOFLOXACIN750 MG PO; +LIPITOR20 MG PO; +Neurin-Sl Tablet Sl SL; +VIVLODEX5 MG; +ZOLPIDEM TARTRAT5 MG PO
--- NOTE | 2024-06-07 14:25 | NUR ---
SE RECIBE PACIENTE ALERTA Y ORIENTADA X3 LA CUAL REFIERE VENIR DE [facility]IPONATREM[facility]. AL MOMENTO SE MANTIENE BAJO OBSERVACION PARA COPNTINUACIN DE TRATAMIENTO.
[2024-06-07] MEDS ORDERED: 0.9 % SODIUM CHLORIDE 1,000 ML IV SCH ×2 (14:30→18:00)
[2024-06-07] MEDS ORDERED: FAMOTIDINE/PF 20 MG/2 ML VIAL IV ONE (14:30)
--- NOTE | 2024-06-07 15:07 | NUR ---
SE EDUCA PACIENTE SOBRE EL TX MEDICO Y ESTA REFIERE ENTENDER. SE ARON MUESTRAS DE LABORATORIOS Y SE ENVIAN. SE REALIZA EKG Y SE CHARLENE EN RECORD. PENDIENTE A PLACA
[2024-06-07 15:22] LABS: HEMATOCRIT 34.9 % (36.0-45.00); HEMOGLOBIN 11.6 g/dL (12.0-15.00); MEAN CELL VOLUME 92.5 fL (80.00-100.00); MEAN CORPUSCULAR HEMOGLOBIN 30.8 pg (27.00-32.0); MEAN CORPUSCULAR HGB CONC 33.3 g/dl (32.0-36.0); PLATELET COUNT 276 K/uL (150-450); RED BLOOD COUNT 3.77 M/uL (4.00-6.00); RED CELL DISTRIBUTION WIDTH 17.6 % (11.5-14.5)
[2024-06-07 15:53] LABS: INR 1.06; PARTIAL THROMBOPLASTIN TIME 25.8 SECONDS (22.0-34.0); PROTHROMBIN TIME 11.5 SECONDS (9.0-11.5)
[2024-06-07 15:59] LABS: ALBUMIN 3.2 gm/dL (3.4-5.0); BILIRUBIN TOTAL 0.3 mg/dL (0.3-1.2); CALCIUM 10.8 mg/dL (8.5-10.1); CREATININE SERUM 1.94 mg/dL (0.55-1.02); GFR 25.82; GLOBULINA 4.6 G/DL (2.4-3.5); POTASSIUM 5.58 mEq/L (3.5-5.1); TOTAL PROTEIN 7.8 gm/dL (6.4-8.2)
[2024-06-07] MEDS ORDERED: FOLIC ACID 1 MG TABLET PO SCH (17:58)
[2024-06-07] MEDS ORDERED: Cyanocobalamin/Mecobalamin 1 TAB.SL SL SCH (17:59)
[2024-06-07] MEDS ORDERED: MULTIVIT INFUSN,ADULT 4,VIT K 10 ML VIAL IV SCH (17:59)
[2024-06-07] MEDS ORDERED: INSULIN LISPRO 1,000 UNIT/10 ML UNITS SUBCUTANEO PRN (18:00)
[2024-06-07] MEDS ORDERED: DEXTROSE 50 % IN WATER 0.5 G/ML DISP.SYRIN IV PRN (18:00)
[2024-06-07] MEDS ORDERED: ACETAMINOPHEN 500 MG GEL..CAP PO PRN (18:00)
[2024-06-07 18:05] LABS: URINE APPEARANCE Cloudy; URINE BILIRRUBIN Negative (NEGATIVE); URINE BLOOD Negative; URINE COLOR Yellow; URINE KETONE Negative (NEGATIVE); URINE LEUKOCYTE Moderate; URINE NITRATE Negative; URINE PROTEIN Negative (NEGATIVE); URINE UROBILINOGEN 0.2 E.U./dl
[2024-06-07 18:11] LABS: URINE CAST 1.67 uL (0.0-1.40); URINE EPITHELIAL CELLS 3.2 uL (0.0-38.8); URINE RBC 141.5 uL (0.0-20.8); URINE WBC 343.5 uL (0.0-23.2)
[2024-06-07 19:04] LABS: URINE GLUCOSE 250 MG/DL (NEGATIVE)
[2024-06-07 19:05] LABS: URINE YEAST MANY /hpf
[2024-06-07] MEDS ORDERED: GABAPENTIN 600 MG TABLET PO SCH (21:00)
[2024-06-07] MEDS ORDERED: ZOLPIDEM TARTRATE 5 MG TABLET PO SCH (21:00)
[2024-06-08 02:44] VITALS: BP 111/74; O2SAT 98
[2024-06-08 07:26] LABS: ALBUMIN 3.3 gm/dL (3.4-5.0); BILIRUBIN TOTAL 0.27 mg/dL (0.3-1.2); CALCIUM 10.8 mg/dL (8.5-10.1); CREATININE SERUM 1.57 mg/dL (0.55-1.02); GFR 32.96; GLOBULINA 4.3 G/DL (2.4-3.5); POTASSIUM 5.68 mEq/L (3.5-5.1); TOTAL PROTEIN 7.6 gm/dL (6.4-8.2)
[2024-06-08 07:32] LABS: HEMATOCRIT 36.1 % (36.0-45.00); HEMOGLOBIN 12.6 g/dL (12.0-15.00); MEAN CELL VOLUME 91.7 fL (80.00-100.00); MEAN CORPUSCULAR HEMOGLOBIN 31.9 pg (27.00-32.0); MEAN CORPUSCULAR HGB CONC 34.8 g/dl (32.0-36.0); PLATELET COUNT 194 K/uL (150-450); RED BLOOD COUNT 3.93 M/uL (4.00-6.00); RED CELL DISTRIBUTION WIDTH 17.8 % (11.5-14.5)
[2024-06-08] MEDS ORDERED: HYDROXYCHLOROQUINE SULFATE 200 MG TABLET PO SCH (09:00)
[2024-06-08] MEDS ORDERED: INSULIN GLARGINE,HUM.REC.ANLOG 1,000 UNITS/10 ML UNITS SUBCUTANEO SCH (09:00)
[2024-06-08 09:08] VITALS: BP 110/65; O2SAT 96
[2024-06-08] MEDS ORDERED: LOPERAMIDE HCL 2 MG CAPSULE PO SCH (16:00)
[2024-06-08] MEDS ORDERED: ATORVASTATIN CALCIUM 20 MG TABLET PO SCH (17:00)
[2024-06-08 17:44] VITALS: BP 140/67
[2024-06-09 02:34] VITALS: BP 103/66; O2SAT 97
[2024-06-09] MEDS ORDERED: INSULIN LISPRO 1,000 UNIT/10 ML UNITS SUBCUTANEO SCH (08:00)
[2024-06-09 08:24] VITALS: BP 120/77
[2024-06-09] MEDS ORDERED: INSULIN GLARGINE,HUM.REC.ANLOG 1,000 UNITS/10 ML UNITS SUBCUTANEO SCH (09:00)
[2024-06-09 16:52] VITALS: BP 135/64; O2SAT 100
[2024-06-09] MEDS ORDERED: SODIUM POLYSTYRENE SULFONATE 30G/8 TSP PO SCH (17:00)
[2024-06-09 20:00] VITALS: BP 127/65; O2SAT 100
[2024-06-10 02:23] VITALS: BP 125/66; O2SAT 99
[2024-06-10 09:45] VITALS: BP 131/65; O2SAT 99
[2024-06-10 17:18] VITALS: BP 154/94; O2SAT 100
[2024-06-10 22:03] LABS: ALBUMIN 2.4 gm/dL (3.4-5.0); BILIRUBIN TOTAL 0.2 mg/dL (0.3-1.2); CALCIUM 9.6 mg/dL (8.5-10.1); CREATININE SERUM 0.84 mg/dL (0.55-1.02); GFR 67.83; GLOBULINA 3.3 G/DL (2.4-3.5); POTASSIUM 4.79 mEq/L (3.5-5.1); TOTAL PROTEIN 5.7 gm/dL (6.4-8.2)
[2024-06-11 03:17] VITALS: BP 127/64; O2SAT 100
[2024-06-11] MEDS ORDERED: INSULIN LISPRO 1,000 UNIT/10 ML UNITS SUBCUTANEO SCH (08:00)
[2024-06-11 08:54] VITALS: BP 106/56; O2SAT 97
[2024-06-11] MEDS ORDERED: INSULIN GLARGINE,HUM.REC.ANLOG 1,000 UNITS/10 ML UNITS SUBCUTANEO SCH (09:00)
[2024-06-11 14:14] LABS: ALBUMIN 2.6 gm/dL (3.4-5.0); BILIRUBIN TOTAL 0.21 mg/dL (0.3-1.2); CALCIUM 9.4 mg/dL (8.5-10.1); CREATININE SERUM 0.61 mg/dL (0.55-1.02); GFR 98.13; GLOBULINA 3.7 G/DL (2.4-3.5); POTASSIUM 4.78 mEq/L (3.5-5.1); TOTAL PROTEIN 6.3 gm/dL (6.4-8.2)
[2024-06-11 16:43] VITALS: BP 136/65
[2024-06-12 01:15] VITALS: BP 126/66; O2SAT 96
[2024-06-12 07:14] LABS: ALBUMIN 2.3 gm/dL (3.4-5.0); BILIRUBIN TOTAL 0.38 mg/dL (0.3-1.2); CREATININE SERUM 0.56 mg/dL (0.55-1.02); GFR 108.31; GLOBULINA 3.1 G/DL (2.4-3.5); POTASSIUM 4.42 mEq/L (3.5-5.1); TOTAL PROTEIN 5.4 gm/dL (6.4-8.2)
[2024-06-12 10:03] VITALS: BP 145/86; O2SAT 97
[2024-06-12] MEDS ORDERED: LOPERAMIDE2 MG PO (18:15)
== END 2024-06-12 18:23 | disposition home or self-care (01) | DRG 683 ==
LOC: ER 14:10 → MEDI 18:10
PROVIDERS: General Practice; Internal Medicine; ADMIT Internal Medicine; ATTEND Internal Medicine
DX: N17.9 Acute kidney failure, unspecified (principal); K94.19 Other complications of enterostomy; E86.0 Dehydration; E87.5 Hyperkalemia; Z79.4 Long term (current) use of insulin; E11.22 Type 2 diabetes mellitus with diabetic chronic kidney disease; N18.2 Chronic kidney disease, stage 2 (mild); M35.00 Sjogren syndrome, unspecified; E78.5 Hyperlipidemia, unspecified; E11.65 Type 2 diabetes mellitus with hyperglycemia

== ENCOUNTER 2024-06-30 12:41 | Emergency (ER) | payer OTHER ==
[~2024-06-30] VITALS: Ht 165.1 cm; Wt 75.3 kg
[~2024-06-30 12:41] MED LIST changes: +LOPERAMIDE2 MG PO
[2024-06-30] MEDS ORDERED: 0.9 % SODIUM CHLORIDE 1,000 ML IV ONE (13:45)
[2024-06-30] MEDS ORDERED: DICYCLOMINE HCL 20 MG TABLET PO ONE (13:45)
[2024-06-30] MEDS ORDERED: INSULIN REGULAR, HUMAN 1,000 UNIT/10 ML UNITS IV ONE (13:45)
[2024-06-30 15:02] LABS: ABG PH 7.461 (7.35-7.45); ABG PO2 144.7 mmHg (80-100); BASE EXCESS -4.6 mmol/l; BICARBONATE 17.1 mmol/l (23-25); SaO2 99.3 %; Tco2 17.9 mmol/l
[2024-06-30 15:03] LABS: ABG pCO2 24.6 mmHg (35-45); allen test SATISFACTORY; o2 21 %; puncture site RADIAL LEFT
[2024-06-30 16:13] LABS: HEMATOCRIT 28.9 % (36.0-45.00); MEAN CELL VOLUME 94.8 fL (80.00-100.00); MEAN CORPUSCULAR HEMOGLOBIN 31.4 pg (27.00-32.0); MEAN CORPUSCULAR HGB CONC 33.1 g/dl (32.0-36.0); PLATELET COUNT 360 K/uL (150-450); RED BLOOD COUNT 3.05 M/uL (4.00-6.00); RED CELL DISTRIBUTION WIDTH 17.1 % (11.5-14.5)
[2024-06-30 16:36] LABS: HEMOGLOBIN 9.6 g/dL (12.0-15.00)
[2024-06-30 16:38] LABS: ALBUMIN 2.5 gm/dL (3.4-5.0); BILIRUBIN TOTAL 0.36 mg/dL (0.3-1.2); CALCIUM 10.5 mg/dL (8.5-10.1); CREATININE SERUM 0.82 mg/dL (0.55-1.02); GFR 69.75; GLOBULINA 5.1 G/DL (2.4-3.5); POTASSIUM 4.87 mEq/L (3.5-5.1); TOTAL PROTEIN 7.6 gm/dL (6.4-8.2)
[2024-06-30 17:44] LABS: URINE APPEARANCE Cloudy; URINE BILIRRUBIN Negative (NEGATIVE); URINE BLOOD Negative; URINE COLOR Yellow; URINE KETONE 15 (NEGATIVE); URINE LEUKOCYTE Negative; URINE NITRATE Negative; URINE PROTEIN 30 (NEGATIVE); URINE UROBILINOGEN 0.2 E.U./dl
[2024-06-30 17:47] LABS: URINE CAST 4.41 uL (0.0-1.40); URINE EPITHELIAL CELLS 36.5 uL (0.0-38.8); URINE RBC 186.1 uL (0.0-20.8); URINE WBC 193.9 uL (0.0-23.2)
[2024-06-30 17:48] LABS: URINE BACTERIA > 9821.5 uL (0.0-1933); URINE GLUCOSE >=1000 MG/DL (NEGATIVE)
[2024-06-30] MEDS ORDERED: CEFTRIAXONE SODIUM 2,000 MG VIAL IV ONE (18:15)
[2024-06-30] MEDS ORDERED: LEVOFLOXACIN750 MG PO (22:03)
== END 2024-06-30 22:36 | disposition home or self-care (01) ==
LOC: ER 12:41
PROVIDERS: General Practice
DX: R73.9 Hyperglycemia, unspecified (principal); Z79.4 Long term (current) use of insulin
CPT/HCPCS: 36415; 71045; 82803; 93005; 96365; 96366; 99283; J0696; J1815; J7030

== ENCOUNTER 2024-07-07 20:01 | Inpatient (IN) | payer OTHER ==
[~2024-07-07] VITALS: Ht 165.1 cm; Wt 75.3 kg
[2024-07-07] MEDS ORDERED: KETOROLAC TROMETHAMINE 60 MG VIAL IM ONE (20:58)
[2024-07-07 21:23] LABS: HEMATOCRIT 30.9 % (36.0-45.00); HEMOGLOBIN 10.5 g/dL (12.0-15.00); MEAN CELL VOLUME 94.8 fL (80.00-100.00); MEAN CORPUSCULAR HEMOGLOBIN 32.1 pg (27.00-32.0); MEAN CORPUSCULAR HGB CONC 33.9 g/dl (32.0-36.0); PLATELET COUNT 480 K/uL (150-450); RED BLOOD COUNT 3.26 M/uL (4.00-6.00); RED CELL DISTRIBUTION WIDTH 18.7 % (11.5-14.5)
[2024-07-07 21:45] LABS: INR 1.13; PARTIAL THROMBOPLASTIN TIME 30.2 SECONDS (22.0-34.0); PROTHROMBIN TIME 12.2 SECONDS (9.0-11.5)
[2024-07-07 21:48] LABS: ALBUMIN 2.4 gm/dL (3.4-5.0); BILIRUBIN TOTAL 0.35 mg/dL (0.3-1.2); CALCIUM 10.5 mg/dL (8.5-10.1); CREATININE SERUM 1.18 mg/dL (0.55-1.02); GFR 45.83; GLOBULINA 5.5 G/DL (2.4-3.5); POTASSIUM 4.62 mEq/L (3.5-5.1); TOTAL PROTEIN 7.9 gm/dL (6.4-8.2)
[2024-07-07] MEDS ORDERED: PIPERACILLIN/TAZOBACTAM SODIUM 3.375 GM VIAL IV ONE (22:42)
[2024-07-08 05:50] LABS: URINE APPEARANCE Cloudy; URINE BILIRRUBIN Negative (NEGATIVE); URINE BLOOD Negative; URINE COLOR Yellow; URINE KETONE Negative (NEGATIVE); URINE LEUKOCYTE Trace; URINE NITRATE Positive; URINE PROTEIN Trace (NEGATIVE); URINE UROBILINOGEN 0.2 E.U./dl
[2024-07-08 05:53] LABS: URINE CAST 3.38 uL (0.0-1.40); URINE EPITHELIAL CELLS 38.4 uL (0.0-38.8); URINE RBC 11.3 uL (0.0-20.8); URINE WBC 115.5 uL (0.0-23.2)
[2024-07-08 06:07] LABS: URINE BACTERIA > 9821.5 uL (0.0-1933); URINE GLUCOSE >=1000 MG/DL (NEGATIVE)
[2024-07-08] MEDS ORDERED: MEROPENEM 500 MG/VIAL VIAL IV SCH (09:00)
[2024-07-08] MEDS ORDERED: MEPERIDINE HCL/PF 25 MG/ML VIAL IM PRN (10:30)
[2024-07-08] MEDS ORDERED: INSULIN LISPRO 1,000 UNIT/10 ML UNITS SUBCUTANEO PRN (10:30)
[2024-07-08] MEDS ORDERED: ACETAMINOPHEN 500 MG GEL..CAP PO PRN (10:30)
[2024-07-08] MEDS ORDERED: DEXTROSE 50 % IN WATER 0.5 G/ML DISP.SYRIN IV PRN (10:30)
[2024-07-08] MEDS ORDERED: ONDANSETRON HCL 2 MG/ML VIAL IV PRN (10:30)
[2024-07-08] MEDS ORDERED: 0.9 % SODIUM CHLORIDE 1,000 ML IV SCH (11:15)
[2024-07-08] MEDS ORDERED: PIPERACILLIN/TAZOBACTAM SODIUM 3.375 GM VIAL IV SCH (12:00)
[2024-07-08 16:00] VITALS: BP 131/77; O2SAT 100
[2024-07-08] MEDS ORDERED: GABAPENTIN 600 MG TABLET PO SCH (17:00)
[2024-07-08] MEDS ORDERED: ANIDULAFUNGIN 100 MG VIAL IV NR (17:00)
[2024-07-08 18:56] LABS: URINE APPEARANCE Clear; URINE BILIRRUBIN Negative (NEGATIVE); URINE BLOOD Negative; URINE COLOR Yellow; URINE LEUKOCYTE Trace; URINE NITRATE Negative; URINE PROTEIN Trace (NEGATIVE); URINE UROBILINOGEN 0.2 E.U./dl
[2024-07-08 18:59] LABS: URINE BACTERIA 1182.3 uL (0.0-1933); URINE EPITHELIAL CELLS 45.1 uL (0.0-38.8); URINE RBC 27.9 uL (0.0-20.8)
[2024-07-08 19:13] LABS: URINE CAST 0.88 uL (0.0-1.40); URINE GLUCOSE >=1000 MG/DL (NEGATIVE); URINE KETONE 40 (NEGATIVE); URINE YEAST FEW /hpf
[2024-07-08] MEDS ORDERED: LINEZOLID 600 MG TABLET PO SCH (21:00)
[2024-07-09] VITALS: BP 109/65; O2SAT 99
[2024-07-09 07:44] LABS: HEMATOCRIT 27.8 % (36.0-45.00); HEMOGLOBIN 9.3 g/dL (12.0-15.00); MEAN CORPUSCULAR HEMOGLOBIN 31.8 pg (27.00-32.0); MEAN CORPUSCULAR HGB CONC 33.5 g/dl (32.0-36.0); PLATELET COUNT 471 K/uL (150-450); RED BLOOD COUNT 2.93 M/uL (4.00-6.00); RED CELL DISTRIBUTION WIDTH 18.7 % (11.5-14.5)
[2024-07-09 08:55] VITALS: BP 98/64; O2SAT 97
[2024-07-09] MEDS ORDERED: METHIMAZOLE 5 MG TABLET PO SCH (09:00)
[2024-07-09] MEDS ORDERED: HYDROXYCHLOROQUINE SULFATE 200 MG TABLET PO SCH (09:00)
[2024-07-09] MEDS ORDERED: FAMOTIDINE/PF 20 MG/2 ML VIAL IV SCH (09:00)
[2024-07-09] MEDS ORDERED: ANIDULAFUNGIN 100 MG VIAL IV SCH (12:00)
[2024-07-09 16:00] VITALS: BP 139/63; O2SAT 100
[2024-07-10 00:07] VITALS: BP 131/61; O2SAT 100
[2024-07-10 07:43] VITALS: BP 113/70; O2SAT 99
[2024-07-10 08:04] LABS: ALBUMIN 1.9 gm/dL (3.4-5.0); BILIRUBIN TOTAL 0.36 mg/dL (0.3-1.2); CALCIUM 9.4 mg/dL (8.5-10.1); CREATININE SERUM 0.65 mg/dL (0.55-1.02); GFR 91.19; GLOBULINA 3.3 G/DL (2.4-3.5); PHOSPHOROUS 2.2 mg/dL (2.5-4.9); POTASSIUM 4.86 mEq/L (3.5-5.1); TOTAL PROTEIN 5.2 gm/dL (6.4-8.2)
[2024-07-10 08:39] LABS: C-REACTIVE PROTEIN 10.8 MG/DL (0.00-0.29)
[2024-07-10 08:40] LABS: MAGNESIUM 1.2 mg/dL (1.8-2.4)
[2024-07-10] MEDS ORDERED: ORPHENADRINE CITRATE 100 MG TABLET PO PRN (15:30)
[2024-07-10 16:00] VITALS: BP 107/58; O2SAT 100
[2024-07-10] MEDS ORDERED: MAGNESIUM SULFATE IN WATER 4 GM/100 ML PIGGYBACK IV NR (17:00)
[2024-07-10] MEDS ORDERED: POTASSIUM PHOS,M-BASIC-D-BASIC 18 MM in 0.9 % SODIUM CHLORIDE 250 ML IV NR (17:00)
[2024-07-10] MEDS ORDERED: LIDOCAINE 5% 1 PATCH ADH. TOP SCH (17:42)
[2024-07-10] MEDS ORDERED: VANCOMYCIN HCL 1,000 MG VIAL ONE (19:16)
[2024-07-10] MEDS ORDERED: VANCOMYCIN HCL 1,000 MG VIAL IV SCH (21:00)
[2024-07-10 23:40] VITALS: BP 143/59; O2SAT 98
[2024-07-11] MEDS ORDERED: VANCOMYCIN HCL 1,000 MG VIAL ONE ×2 (07:35→15:25)
[2024-07-11 09:06] VITALS: BP 127/75; O2SAT 98
[2024-07-11 09:59] LABS: HEMATOCRIT 28.2 % (36.0-45.00); HEMOGLOBIN 9.5 g/dL (12.0-15.00); MEAN CELL VOLUME 95.6 fL (80.00-100.00); MEAN CORPUSCULAR HEMOGLOBIN 32.1 pg (27.00-32.0); MEAN CORPUSCULAR HGB CONC 33.6 g/dl (32.0-36.0); PLATELET COUNT 498 K/uL (150-450); RED BLOOD COUNT 2.95 M/uL (4.00-6.00); RED CELL DISTRIBUTION WIDTH 18.9 % (11.5-14.5)
[2024-07-11 11:06] LABS: BILIRUBIN TOTAL 0.4 mg/dL (0.3-1.2); CALCIUM 9.4 mg/dL (8.5-10.1); CREATININE SERUM 0.61 mg/dL (0.55-1.02); GFR 98.13; GLOBULINA 3.6 G/DL (2.4-3.5); MAGNESIUM 1.8 mg/dL (1.8-2.4); POTASSIUM 4.62 mEq/L (3.5-5.1); TOTAL PROTEIN 5.6 gm/dL (6.4-8.2)
[2024-07-11 11:08] LABS: C-REACTIVE PROTEIN 5.35 MG/DL (0.00-0.29)
[2024-07-11] MEDS ORDERED: POTASSIUM PHOS,M-BASIC-D-BASIC 3 MM/ML VIAL IV NR (14:00)
[2024-07-11] MEDS ORDERED: MEPERIDINE HCL/PF 25 MG/ML VIAL IV PRN (15:00)
[2024-07-11 16:00] VITALS: BP 137/66; O2SAT 99
[2024-07-11] MEDS ORDERED: AMINO ACIDS 4.25%/DEXTROSE 10% 1,000 ML CENTRAL SCH (17:00)
[2024-07-12] VITALS: BP 113/67; O2SAT 98
[2024-07-12] MEDS ORDERED: DIATRIZOATE MEGLUMINE, SODIUM 30 ML BOTTLE PO NR (05:00)
[2024-07-12] MEDS ORDERED: VANCOMYCIN HCL 1,000 MG VIAL ONE ×2 (07:25→15:40)
[2024-07-12 08:18] VITALS: BP 125/66; O2SAT 98
[2024-07-12 08:28] LABS: CALCIUM 8.9 mg/dL (8.5-10.1); CREATININE SERUM 0.58 mg/dL (0.55-1.02); GFR 104.01; POTASSIUM 4.15 mEq/L (3.5-5.1)
[2024-07-12 08:47] LABS: PH,URINE 5.5 (5.0-8.0); URINE APPEARANCE Clear; URINE BILIRRUBIN Negative (NEGATIVE); URINE BLOOD Negative; URINE COLOR Yellow; URINE KETONE 15 (NEGATIVE); URINE LEUKOCYTE Negative; URINE NITRATE Negative; URINE PROTEIN Negative (NEGATIVE); URINE UROBILINOGEN 0.2 E.U./dl
[2024-07-12 09:09] LABS: URINE BACTERIA 24.4 uL (0.0-1933); URINE EPITHELIAL CELLS 15.4 uL (0.0-38.8); URINE RBC 12.5 uL (0.0-20.8); URINE WBC 8.8 uL (0.0-23.2)
[2024-07-12 09:11] LABS: URINE CAST 0.29 uL (0.0-1.40); URINE GLUCOSE >=1000 MG/DL (NEGATIVE)
[2024-07-12 16:06] VITALS: BP 132/77; O2SAT 100
[2024-07-12] MEDS ORDERED: ZOLPIDEM TARTRATE 5 MG TABLET PO SCH (21:00)
[2024-07-13] VITALS: BP 130/77; O2SAT 96
[2024-07-13 08:00] VITALS: BP 135/80; O2SAT 100
[2024-07-13] MEDS ORDERED: VANCOMYCIN HCL 1,000 MG VIAL ONE ×2 (08:01→15:14)
[2024-07-13 16:03] VITALS: BP 143/69; O2SAT 100
[2024-07-14] VITALS: BP 134/86; O2SAT 100
[2024-07-14] MEDS ORDERED: VANCOMYCIN HCL 1,000 MG VIAL ONE ×2 (06:44→15:21)
[2024-07-14 08:35] VITALS: BP 100/51; O2SAT 98
[2024-07-14 08:37] LABS: ALKALINE PHOSPHATASE 82 U/L (50-136); ALT/SGPT 12 U/L (12-78); ANION GAP 10 (10.0-20.0); AST/SGOT 11 U/L (15-37); BILIRUBIN TOTAL 0.37 mg/dL (0.3-1.2); BILIRUBIN,CONJUGATED < 0.10 mg/dL (0.0-0.2); BILIRUBIN,UNCONJUGATED 0.27 mg/dL (0.0-0.6); BLOOD UREA NITROGEN 12 mg/dL (7-18); BUN CREA RATIO 29 (7.0-25.0); CALCIUM 8.7 mg/dL (8.5-10.1); CARBON DIOXIDE 24 mEq/L (21-32); CHLORIDE 112 mmol/L (98-107); CHOL HDL RATIO 2.8 (0-5.0); CHOLESTEROL 142 mg/dL (0-200); CREATININE SERUM 0.41 mg/dL (0.55-1.02); GFR 155.21; GLOBULINA 3.2 G/DL (2.4-3.5); GLUCOSE FASTING 161 mg/dL (65-100); HDL 50 mg/dl (40-60); LDL 49 mg/dl (0-130); OSMOLALITY SERUM 286 MOSM/KG (275-295); POTASSIUM 3.61 mEq/L (3.5-5.1); SODIUM 142 mmol/L (136-145); TOTAL PROTEIN 5.2 gm/dL (6.4-8.2); VLDL 43 (0-39)
[2024-07-14 08:52] LABS: TRIGLYCERIDES 215 mg/dL (0-150)
[2024-07-14 09:19] LABS: INR 1.1; PARTIAL THROMBOPLASTIN TIME 24.6 SECONDS (22.0-34.0); PROTHROMBIN TIME 11.9 SECONDS (9.0-11.5)
[2024-07-14 09:20] LABS: HEMATOCRIT 23.8 % (36.0-45.00); MEAN CELL VOLUME 91.9 fL (80.00-100.00); MEAN CORPUSCULAR HGB CONC 35.4 g/dl (32.0-36.0); PLATELET COUNT 366 K/uL (150-450); RED BLOOD COUNT 2.59 M/uL (4.00-6.00); RED CELL DISTRIBUTION WIDTH 18.1 % (11.5-14.5)
[2024-07-14 09:21] LABS: HEMOGLOBIN 8.4 g/dL (12.0-15.00); MEAN CORPUSCULAR HEMOGLOBIN 32.4 pg (27.00-32.0)
[2024-07-14 10:05] LABS: BLOOD UREA NITROGEN 12 mg/dL (7-18); UREA CLEARANCE 39.4 ML/MIN
[2024-07-14] MEDS ORDERED: ENOXAPARIN SODIUM 40 MG/0.4 ML SYRINGE SUBCUTANEO NR (11:00)
[2024-07-14] MEDS ORDERED: SOD FERRIC GLUC COMPLX/SUCROSE 62.5 MG/5 ML AMPUL IV NR (13:00)
[2024-07-14] MEDS ORDERED: MAGNESIUM SULFATE IN WATER 4 GM/100 ML PIGGYBACK IV NR (13:00)
[2024-07-14 16:34] VITALS: BP 130/63; O2SAT 100
[2024-07-15 00:36] VITALS: BP 130/67; O2SAT 99
[2024-07-15 08:14] VITALS: BP 135/63; O2SAT 100
[2024-07-15] MEDS ORDERED: VANCOMYCIN HCL 1,000 MG VIAL ONE ×2 (08:15→15:30)
[2024-07-15] MEDS ORDERED: SOD FERRIC GLUC COMPLX/SUCROSE 62.5 MG in 0.9 % SODIUM CHLORIDE 50 ML IV SCH (09:00)
[2024-07-15] MEDS ORDERED: ENOXAPARIN SODIUM 40 MG/0.4 ML SYRINGE SUBCUTANEO SCH (09:00)
[2024-07-15 11:54] LABS: HEMATOCRIT 25.9 % (36.0-45.00); HEMOGLOBIN 9.2 g/dL (12.0-15.00); MEAN CELL VOLUME 93.3 fL (80.00-100.00); MEAN CORPUSCULAR HEMOGLOBIN 33.1 pg (27.00-32.0); MEAN CORPUSCULAR HGB CONC 35.4 g/dl (32.0-36.0); PLATELET COUNT 421 K/uL (150-450); RED BLOOD COUNT 2.77 M/uL (4.00-6.00); RED CELL DISTRIBUTION WIDTH 18.5 % (11.5-14.5)
[2024-07-15 12:53] LABS: CALCIUM 8.7 mg/dL (8.5-10.1); CREATININE SERUM 0.64 mg/dL (0.55-1.02); GFR 92.84; MAGNESIUM 1.8 mg/dL (1.8-2.4); POTASSIUM 3.39 mEq/L (3.5-5.1)
[2024-07-15 16:00] VITALS: BP 125/56; O2SAT 99
[2024-07-15] MEDS ORDERED: POTASSIUM PHOS,M-BASIC-D-BASIC 3 MM/ML VIAL IV ONE (16:00)
[2024-07-15] MEDS ORDERED: MEROPENEM 500 MG/VIAL VIAL IV SCH (18:00)
[2024-07-16] VITALS: BP 108/52; O2SAT 98
[2024-07-16] MEDS ORDERED: VANCOMYCIN HCL 1,000 MG VIAL ONE ×2 (07:21→15:56)
[2024-07-16 08:46] VITALS: BP 133/66; O2SAT 100
[2024-07-16 17:07] VITALS: BP 155/67; O2SAT 100
[2024-07-17] VITALS: BP 121/66; O2SAT 98
[2024-07-17] MEDS ORDERED: VANCOMYCIN HCL 1,000 MG VIAL ONE ×2 (07:31→15:45)
[2024-07-17 07:40] VITALS: BP 143/67; O2SAT 99
[2024-07-17] MEDS ORDERED: INSULIN NPH HUMAN ISOPHANE 1,000 UNITS/10 ML UNITS SUBCUTANEO SCH (09:00)
[2024-07-17 16:07] VITALS: BP 135/58; O2SAT 100
[2024-07-17] MEDS ORDERED: MIDAZOLAM HCL 2 MG/2 ML VIAL IV PUSH ONE (16:15)
[2024-07-17] MEDS ORDERED: fentaNYL CITRATE 50 MCG/ML AMPUL IV PUSH ONE (16:15)
[2024-07-17] MEDS ORDERED: LIDOCAINE 1 EACH ADH..PATCH TOP SCH (17:00)
[2024-07-18 00:46] VITALS: BP 153/67; O2SAT 100
[2024-07-18] MEDS ORDERED: VANCOMYCIN HCL 1,000 MG VIAL ONE ×2 (07:34→15:49)
[2024-07-18 08:20] VITALS: BP 145/67; O2SAT 100
[2024-07-18 16:15] VITALS: BP 154/70; O2SAT 99
[2024-07-18] MEDS ORDERED: INSULIN NPH HUMAN ISOPHANE 1,000 UNITS/10 ML UNITS SUBCUTANEO SCH (21:00)
[2024-07-18] MEDS ORDERED: INSULIN GLARGINE,HUM.REC.ANLOG 1,000 UNITS/10 ML UNITS SUBCUTANEO SCH (21:00)
[2024-07-19 00:32] VITALS: BP 143/65; O2SAT 100
[2024-07-19] MEDS ORDERED: INSULIN LISPRO 1,000 UNIT/10 ML UNITS SUBCUTANEO SCH (08:00)
[2024-07-19 08:27] LABS: HEMATOCRIT 25.7 % (36.0-45.00); MEAN CELL VOLUME 93.6 fL (80.00-100.00); MEAN CORPUSCULAR HEMOGLOBIN 32.7 pg (27.00-32.0); MEAN CORPUSCULAR HGB CONC 34.9 g/dl (32.0-36.0); PLATELET COUNT 383 K/uL (150-450); RED BLOOD COUNT 2.75 M/uL (4.00-6.00); RED CELL DISTRIBUTION WIDTH 18.8 % (11.5-14.5)
[2024-07-19] MEDS ORDERED: VANCOMYCIN HCL 1,000 MG VIAL ONE ×2 (08:37→14:50)
[2024-07-19 08:47] VITALS: BP 134/60; O2SAT 100
[2024-07-19 08:53] LABS: CALCIUM 8.7 mg/dL (8.5-10.1); CREATININE SERUM 0.43 mg/dL (0.55-1.02); GFR 146.91; POTASSIUM 3.51 mEq/L (3.5-5.1)
[2024-07-19] MEDS ORDERED: SOD FERRIC GLUC COMPLX/SUCROSE 62.5 MG in 0.9 % SODIUM CHLORIDE 50 ML IV SCH (09:45)
[2024-07-19] MEDS ORDERED: Cyanocobalamin/Mecobalamin 1 TAB.SL SL SCH (09:45)
[2024-07-19 16:00] VITALS: BP 154/66; O2SAT 97
[2024-07-20 00:10] VITALS: BP 148/83; O2SAT 100
[2024-07-20] MEDS ORDERED: VANCOMYCIN HCL 1,000 MG VIAL ONE ×2 (07:55→14:38)
[2024-07-20 09:49] VITALS: BP 108/68; O2SAT 100
[2024-07-20] MEDS ORDERED: INSULIN LISPRO 1,000 UNIT/10 ML UNITS SUBCUTANEO STA (11:31)
[2024-07-20 16:00] VITALS: BP 143/67; O2SAT 100
[2024-07-20] MEDS ORDERED: INSULIN LISPRO 1,000 UNIT/10 ML UNITS SUBCUTANEO SCH (17:00)
[2024-07-20] MEDS ORDERED: ZOLPIDEM TARTRATE 5 MG TABLET PO SCH (21:00)
[2024-07-21 01:00] VITALS: BP 147/77; O2SAT 98
[2024-07-21] MEDS ORDERED: VANCOMYCIN HCL 1,000 MG VIAL ONE ×2 (07:40→14:30)
[2024-07-21 08:03] LABS: MEAN CELL VOLUME 94.6 fL (80.00-100.00); MEAN CORPUSCULAR HGB CONC 35.1 g/dl (32.0-36.0); PLATELET COUNT 318 K/uL (150-450); RED BLOOD COUNT 2.21 M/uL (4.00-6.00); RED CELL DISTRIBUTION WIDTH 19.7 % (11.5-14.5)
[2024-07-21 08:04] VITALS: BP 124/59; O2SAT 98
[2024-07-21 08:11] LABS: HEMATOCRIT 20.9 % (36.0-45.00)
[2024-07-21 08:12] LABS: HEMOGLOBIN 7.3 g/dL (12.0-15.00)
[2024-07-21 08:41] LABS: ALBUMIN 2.2 gm/dL (3.4-5.0); BILIRUBIN TOTAL 0.62 mg/dL (0.3-1.2); CALCIUM 8.9 mg/dL (8.5-10.1); CREATININE SERUM 0.41 mg/dL (0.55-1.02); GFR 155.21; GLOBULINA 3.1 G/DL (2.4-3.5); POTASSIUM 3.6 mEq/L (3.5-5.1); TOTAL PROTEIN 5.3 gm/dL (6.4-8.2)
[2024-07-21 08:56] LABS: MAGNESIUM 1.1 mg/dL (1.8-2.4)
[2024-07-21] MEDS ORDERED: FUROsemide 20 MG/2 ML VIAL IV SCH (14:00)
[2024-07-21 16:01] LABS: MEAN CELL VOLUME 95.6 fL (80.00-100.00); MEAN CORPUSCULAR HGB CONC 34.8 g/dl (32.0-36.0); PLATELET COUNT 341 K/uL (150-450); RED BLOOD COUNT 2.35 M/uL (4.00-6.00); RED CELL DISTRIBUTION WIDTH 19.8 % (11.5-14.5)
[2024-07-21 16:06] LABS: MEAN CORPUSCULAR HEMOGLOBIN 33.1 pg (27.00-32.0)
[2024-07-21 16:07] LABS: HEMATOCRIT 22.4 % (36.0-45.00); HEMOGLOBIN 7.8 g/dL (12.0-15.00)
[2024-07-21 16:43] VITALS: BP 147/66; O2SAT 99
[2024-07-22] VITALS: BP 127/56; O2SAT 99
[2024-07-22] MEDS ORDERED: VANCOMYCIN HCL 1,000 MG VIAL ONE ×2 (08:03→16:00)
[2024-07-22 08:25] VITALS: BP 140/62; O2SAT 100
[2024-07-22 12:41] LABS: COL EPI 52 SECONDS (82-175)
[2024-07-22 12:43] LABS: FERRITIN 1364.4 NG/ML (8-252)
[2024-07-22 19:46] VITALS: BP 159/70; O2SAT 100
[2024-07-22 20:15] LABS: ob NEGATIVE (NEGATIVE)
[2024-07-22 23:17] LABS: HEMATOCRIT 36.1 % (36.0-45.00); MEAN CELL VOLUME 91.4 fL (80.00-100.00); MEAN CORPUSCULAR HGB CONC 34.4 g/dl (32.0-36.0); PLATELET COUNT 182 K/uL (150-450); RED BLOOD COUNT 3.95 M/uL (4.00-6.00); RED CELL DISTRIBUTION WIDTH 20.6 % (11.5-14.5)
[2024-07-22 23:31] LABS: HEMOGLOBIN 12.4 g/dL (12.0-15.00); MEAN CORPUSCULAR HEMOGLOBIN 31.3 pg (27.00-32.0)
[2024-07-23 00:30] VITALS: BP 149/61; O2SAT 100
[2024-07-23] MEDS ORDERED: VANCOMYCIN HCL 1,000 MG VIAL ONE ×2 (06:43→16:32)
[2024-07-23] MEDS ORDERED: INSULIN LISPRO 1,000 UNIT/10 ML UNITS SUBCUTANEO SCH (08:00)
[2024-07-23 08:16] VITALS: BP 132/73; O2SAT 100
[2024-07-23 12:11] LABS: FOLIC ACID 17.52 ng/ml (4.78-20)
[2024-07-23 16:00] VITALS: BP 111/53; BP 161/70; O2SAT 99
[2024-07-24 01:29] VITALS: BP 147/63; O2SAT 98
[2024-07-24] MEDS ORDERED: VANCOMYCIN HCL 1,000 MG VIAL ONE ×2 (07:26→15:14)
[2024-07-24 08:05] VITALS: BP 141/65; O2SAT 98
[2024-07-24] MEDS ORDERED: IRON FUM,PS/FOLIC ACID/VITC/B3 1 CAP CAPSULE PO SCH (09:00)
[2024-07-24] MEDS ORDERED: SODIUM CL 0.9% 50 ML IV.SOLN IV ONE (09:01)
[2024-07-24] MEDS ORDERED: DIATRIZOATE MEGLUMINE, SODIUM 30 ML BOTTLE PO NR (09:07)
[2024-07-24 16:00] VITALS: BP 171/71; O2SAT 100
[2024-07-25] VITALS: BP 116/56; O2SAT 97
[2024-07-25 06:55] LABS: HEMATOCRIT 32.1 % (36.0-45.00); HEMOGLOBIN 10.9 g/dL (12.0-15.00); MEAN CELL VOLUME 93.4 fL (80.00-100.00); MEAN CORPUSCULAR HEMOGLOBIN 31.7 pg (27.00-32.0); MEAN CORPUSCULAR HGB CONC 33.9 g/dl (32.0-36.0); PLATELET COUNT 237 K/uL (150-450); RED BLOOD COUNT 3.44 M/uL (4.00-6.00); RED CELL DISTRIBUTION WIDTH 19.9 % (11.5-14.5)
[2024-07-25 07:07] LABS: ERYTHROCYTE SEDIMENTATION RATE 39 mm/hr
[2024-07-25 07:16] LABS: ALBUMIN 2.5 gm/dL (3.4-5.0); ALKALINE PHOSPHATASE 115 U/L (50-136); ALT/SGPT 16 U/L (12-78); ANION GAP 5 (10.0-20.0); AST/SGOT 14 U/L (15-37); BILIRUBIN TOTAL 1.12 mg/dL (0.3-1.2); BLOOD UREA NITROGEN 13 mg/dL (7-18); BUN CREA RATIO 24 (7.0-25.0); CALCIUM 9.5 mg/dL (8.5-10.1); CARBON DIOXIDE 31 mEq/L (21-32); CHLORIDE 109 mmol/L (98-107); CREATININE SERUM 0.55 mg/dL (0.55-1.02); GFR 110.59; GLOBULINA 3.1 G/DL (2.4-3.5); GLUCOSE FASTING 148 mg/dL (65-100); OSMOLALITY SERUM 284 MOSM/KG (275-295); SODIUM 141 mmol/L (136-145); TOTAL PROTEIN 5.6 gm/dL (6.4-8.2)
[2024-07-25 07:17] LABS: C-REACTIVE PROTEIN < 0.29 MG/DL (0.00-0.29)
[2024-07-25 08:00] VITALS: BP 129/78; O2SAT 98
[2024-07-25] MEDS ORDERED: VANCOMYCIN HCL 1,000 MG VIAL ONE ×2 (08:33→15:57)
[2024-07-25 17:00] VITALS: BP 124/60; O2SAT 98
[2024-07-25] MEDS ORDERED: VITAMIN B COMPLEX 1 EACH PO SCH (17:00)
[2024-07-26 01:01] VITALS: BP 127/63; O2SAT 99
[2024-07-26 08:00] VITALS: BP 134/60; O2SAT 100
[2024-07-26] MEDS ORDERED: VANCOMYCIN HCL 1,000 MG VIAL ONE ×2 (08:23→14:59)
[2024-07-26 17:35] VITALS: BP 157/76; O2SAT 100
[2024-07-27] VITALS: BP 106/56; O2SAT 96
[2024-07-27] MEDS ORDERED: VANCOMYCIN HCL 1,000 MG VIAL ONE ×2 (07:40→15:19)
[2024-07-27 08:00] VITALS: BP 133/75; O2SAT 100
[2024-07-27 16:00] VITALS: BP 160/72; O2SAT 100
[2024-07-28] VITALS: BP 140/65; O2SAT 98
[2024-07-28] MEDS ORDERED: VANCOMYCIN HCL 1,000 MG VIAL ONE ×2 (07:32→14:57)
[2024-07-28 08:20] VITALS: BP 123/65; O2SAT 98
[2024-07-28 16:00] VITALS: BP 138/68; O2SAT 97
[2024-07-28 21:26] LABS: ALBUMIN 3.4 gm/dL (3.4-5.0); ALKALINE PHOSPHATASE 202 U/L (50-136); ALT/SGPT 25 U/L (12-78); ANION GAP 10 (10.0-20.0); AST/SGOT 25 U/L (15-37); BILIRUBIN TOTAL 1.09 mg/dL (0.3-1.2); BLOOD UREA NITROGEN 21 mg/dL (7-18); BUN CREA RATIO 26 (7.0-25.0); C-REACTIVE PROTEIN < 0.29 MG/DL (0.00-0.29); CALCIUM 10.1 mg/dL (8.5-10.1); CARBON DIOXIDE 25 mEq/L (21-32); CHLORIDE 105 mmol/L (98-107); CREATININE SERUM 0.82 mg/dL (0.55-1.02); GFR 69.75; GLOBULINA 4.3 G/DL (2.4-3.5); GLUCOSE FASTING 319 mg/dL (65-100); OSMOLALITY SERUM 285 MOSM/KG (275-295); POTASSIUM 4.55 mEq/L (3.5-5.1); SODIUM 135 mmol/L (136-145); TOTAL PROTEIN 7.7 gm/dL (6.4-8.2)
[2024-07-29 01:25] VITALS: BP 136/68; O2SAT 98
[2024-07-29] MEDS ORDERED: VANCOMYCIN HCL 1,000 MG VIAL ONE ×2 (07:53→15:03)
[2024-07-29 08:00] VITALS: BP 135/65; O2SAT 100
[2024-07-29 16:47] LABS: HEMATOCRIT 35.3 % (36.0-45.00); HEMOGLOBIN 11.8 g/dL (12.0-15.00); MEAN CELL VOLUME 95.7 fL (80.00-100.00); MEAN CORPUSCULAR HEMOGLOBIN 31.8 pg (27.00-32.0); MEAN CORPUSCULAR HGB CONC 33.3 g/dl (32.0-36.0); PLATELET COUNT 243 K/uL (150-450); RED BLOOD COUNT 3.69 M/uL (4.00-6.00); RED CELL DISTRIBUTION WIDTH 18.6 % (11.5-14.5)
[2024-07-29 16:56] VITALS: BP 162/68; O2SAT 100
[2024-07-30 02:45] VITALS: BP 110/56; O2SAT 99
[2024-07-30 08:00] VITALS: BP 150/66; O2SAT 100
[2024-07-30] MEDS ORDERED: VANCOMYCIN HCL 1,000 MG VIAL ONE ×2 (09:02→16:46)
[2024-07-30] MEDS ORDERED: BUPIVACAINE HCL/MPF 0.5% 30ML VIAL ONE (14:18)
[2024-07-30] MEDS ORDERED: LIDOCAINE HCL 1%/EPINEPHRINE 20ML VIAL IJ ONE (14:18)
[2024-07-30] MEDS ORDERED: ONDANSETRON HCL 2 MG/ML VIAL IV PRN (16:30)
[2024-07-30] MEDS ORDERED: OxyCODONE HCL 5 MG TABLET (ROXICODONE) PO PRN (16:30)
[2024-07-30] MEDS ORDERED: MORPHINE SULFATE 4 MG/ML CARTRIDGE IV PRN (16:30)
[2024-07-30] MEDS ORDERED: GABAPENTIN 300 MG CAPSULE PO SCH (17:00)
[2024-07-30] MEDS ORDERED: HYOSCYAMINE SULFATE 0.125 MG TAB.SUBL SL SCH (17:00)
[2024-07-30 17:30] VITALS: BP 137/87; O2SAT 98
[2024-07-30] MEDS ORDERED: ACETAMINOPHEN 500 MG GEL..CAP PO SCH (20:00)
[2024-07-31] VITALS: BP 137/87; O2SAT 95
[2024-07-31] MEDS ORDERED: VANCOMYCIN HCL 1,000 MG VIAL ONE ×2 (07:39→15:04)
[2024-07-31 08:31] LABS: HEMATOCRIT 37.8 % (36.0-45.00); HEMOGLOBIN 12.7 g/dL (12.0-15.00); MEAN CELL VOLUME 95.9 fL (80.00-100.00); MEAN CORPUSCULAR HEMOGLOBIN 32.3 pg (27.00-32.0); MEAN CORPUSCULAR HGB CONC 33.7 g/dl (32.0-36.0); PLATELET COUNT 195 K/uL (150-450); RED BLOOD COUNT 3.94 M/uL (4.00-6.00); RED CELL DISTRIBUTION WIDTH 18.1 % (11.5-14.5)
[2024-07-31 09:28] LABS: ALBUMIN 2.8 gm/dL (3.4-5.0); CALCIUM 9.7 mg/dL (8.5-10.1); CREATININE SERUM 0.53 mg/dL (0.55-1.02); GFR 115.41; MAGNESIUM 1.6 mg/dL (1.8-2.4); PHOSPHOROUS 2.6 mg/dL (2.5-4.9)
[2024-07-31 09:32] LABS: POTASSIUM 4.62 mEq/L (3.5-5.1)
[2024-07-31 09:55] VITALS: BP 124/67; O2SAT 96
[2024-07-31] MEDS ORDERED: MAGNESIUM SULFATE IN WATER 4 GM/100 ML PIGGYBACK IV NR (13:45)
[2024-07-31 16:00] VITALS: BP 142/63; O2SAT 100
[2024-07-31] MEDS ORDERED: ENOXAPARIN SODIUM 40 MG/0.4 ML SYRINGE SUBCUTANEO SCH (17:00)
[2024-08-01] MEDS ORDERED: VANCOMYCIN HCL 1,000 MG VIAL ONE (07:15)
[2024-08-01 08:00] VITALS: BP 107/57; O2SAT 100
[2024-08-01] MEDS ORDERED: ENOXAPARIN SODIUM 40 MG/0.4 ML SYRINGE SUBCUTANEO SCH (09:00)
[2024-08-01] MEDS ORDERED: HYOSCYAMINE0.125 M1 SL (13:00)
[2024-08-01] MEDS ORDERED: TRAMADOL HCL50 MG PO (13:01)
[2024-08-01] MEDS ORDERED: INTESTINEX680 M1 PO (13:01)
== END 2024-08-01 13:40 | disposition home or self-care (01) | DRG 853 ==
LOC: ER 20:03 → SURH 23:30
PROVIDERS: General Practice; Internal Medicine; Internal Medicine Geriatric Medicine; Internal Medicine Hematology & Oncology; Internal Medicine Infectious Disease; Surgery; ADMIT Surgery; ATTEND Surgery
PROC: BW21ZZZ Computerized Tomography (CT Scan) of Abdomen and Pelvis (ICD-10-PCS; 2024-07-07)
PROC: 02HV33Z Insertion of Infusion Device into Superior Vena Cava, Percutaneous Approach (ICD-10-PCS; 2024-07-09)
PROC: 3E0436Z Introduction of Nutritional Substance into Central Vein, Percutaneous Approach (ICD-10-PCS; 2024-07-09)
PROC: BW21YZZ Computerized Tomography (CT Scan) of Abdomen and Pelvis using Other Contrast (ICD-10-PCS; 2024-07-12)
PROC: B54DZZZ Ultrasonography of Bilateral Lower Extremity Veins (ICD-10-PCS; 2024-07-14)
PROC: 0W9F30Z Drainage of Abdominal Wall with Drainage Device, Percutaneous Approach (ICD-10-PCS; 2024-07-17)
PROC: 0W9G30Z Drainage of Peritoneal Cavity with Drainage Device, Percutaneous Approach (ICD-10-PCS; 2024-07-17)
PROC: 30233N1 Transfusion of Nonautologous Red Blood Cells into Peripheral Vein, Percutaneous Approach (ICD-10-PCS; 2024-07-21)
PROC: BW21YZZ Computerized Tomography (CT Scan) of Abdomen and Pelvis using Other Contrast (ICD-10-PCS; 2024-07-24)
PROC: 0JB80ZZ Excision of Abdomen Subcutaneous Tissue and Fascia, Open Approach (ICD-10-PCS; 2024-07-30)
PROC: 0J980ZX Drainage of Abdomen Subcutaneous Tissue and Fascia, Open Approach, Diagnostic (ICD-10-PCS; 2024-07-30)
PROC: 0WPFX0Z Removal of Drainage Device from Abdominal Wall, External Approach (ICD-10-PCS; 2024-07-30)
PROC: 0WJG0ZZ Inspection of Peritoneal Cavity, Open Approach (ICD-10-PCS; principal; 2024-07-30 13:15)
DX: A41.9 Sepsis, unspecified organism (principal); K65.1 Peritoneal abscess; L02.211 Cutaneous abscess of abdominal wall; T81.43XA Infection following a procedure, organ and space surgical site, initial encounter; K63.2 Fistula of intestine; B37.49 Other urogenital candidiasis; B37.89 Other sites of candidiasis; E11.65 Type 2 diabetes mellitus with hyperglycemia; E83.42 Hypomagnesemia; D64.89 Other specified anemias; D50.0 Iron deficiency anemia secondary to blood loss (chronic); M35.00 Sjogren syndrome, unspecified; D63.8 Anemia in other chronic diseases classified elsewhere; M32.9 Systemic lupus erythematosus, unspecified; I87.2 Venous insufficiency (chronic) (peripheral); E05.90 Thyrotoxicosis, unspecified without thyrotoxic crisis or storm; Z93.2 Ileostomy status; Z79.4 Long term (current) use of insulin; Z79.84 Long term (current) use of oral hypoglycemic drugs

== ENCOUNTER 2024-08-30 17:41 | Inpatient (IN) | payer OTHER ==
[~2024-08-30] VITALS: Ht 165.1 cm; Wt 72.6 kg
[~2024-08-30 17:41] MED LIST changes: +INTESTINEX680 M1 PO; +TRAMADOL HCL50 MG PO
[2024-08-30] MEDS ORDERED: GABAPENTIN400 MG PO (17:54)
[2024-08-30] MEDS ORDERED: PIPERACILLIN/TAZOBACTAM SODIUM 3.375 GM in DEXTROSE 5 % IN WATER 100 ML IV SCH (20:24)
[2024-08-30] MEDS ORDERED: ACETAMINOPHEN 500 MG GEL..CAP PO SCH (20:30)
[2024-08-30] MEDS ORDERED: PIPERACILLIN/TAZOBACTAM SODIUM 3.375 GM VIAL IV ONE (20:45)
[2024-08-30] MEDS ORDERED: ACETAMINOPHEN 500 MG GEL..CAP PO ONE (20:45)
[2024-08-30 21:25] LABS: HEMATOCRIT 32.1 % (36.0-45.00); HEMOGLOBIN 10.8 g/dL (12.0-15.00); MEAN CELL VOLUME 98.1 fL (80.00-100.00); MEAN CORPUSCULAR HGB CONC 33.6 g/dl (32.0-36.0); PLATELET COUNT 247 K/uL (150-450); RED BLOOD COUNT 3.27 M/uL (4.00-6.00); RED CELL DISTRIBUTION WIDTH 15.4 % (11.5-14.5)
[2024-08-30 21:49] LABS: INR 0.98; PARTIAL THROMBOPLASTIN TIME 24.8 SECONDS (22.0-34.0); PROTHROMBIN TIME 10.7 SECONDS (9.0-11.5)
[2024-08-30 21:54] LABS: BILIRUBIN TOTAL 0.39 mg/dL (0.3-1.2); CALCIUM 10.1 mg/dL (8.5-10.1); CREATININE SERUM 0.91 mg/dL (0.55-1.02); GFR 61.85; GLOBULINA 4.4 G/DL (2.4-3.5); TOTAL PROTEIN 7.4 gm/dL (6.4-8.2)
[2024-08-30 21:59] LABS: POTASSIUM 5.69 mEq/L (3.5-5.1)
[2024-08-30] MEDS ORDERED: SODIUM POLYSTYRENE SULFONATE 15 G/4 TSP TSP PO SCH (23:10)
[2024-08-30] MEDS ORDERED: TRAMADOL HCL 50 MG TABLET PO PRN (23:15)
[2024-08-30] MEDS ORDERED: ACETAMINOPHEN 500 MG GEL..CAP PO PRN (23:15)
[2024-08-30] MEDS ORDERED: INSULIN LISPRO 1,000 UNIT/10 ML UNITS SUBCUTANEO PRN (23:15)
[2024-08-30] MEDS ORDERED: ONDANSETRON HCL 4 MG in 0.9 % SODIUM CHLORIDE 50 ML IV PRN (23:15)
[2024-08-30] MEDS ORDERED: 0.9 % SODIUM CHLORIDE 1,000 ML IV SCH (23:15)
[2024-08-30] MEDS ORDERED: DEXTROSE 50 % IN WATER 0.5 G/ML DISP.SYRIN IV PRN (23:15)
[2024-08-31 00:42] LABS: URINE BACTERIA 255.8 uL (0.0-1933); URINE EPITHELIAL CELLS 19.6 uL (0.0-38.8); URINE WBC 10.9 uL (0.0-23.2)
[2024-08-31 00:47] LABS: URINE APPEARANCE CLEAR; URINE CAST 0.14 uL (0.0-1.40); URINE COLOR YELLOW; URINE GLUCOSE >=1000 MG/DL (NEGATIVE)
[2024-08-31 00:48] LABS: URINE BILIRRUBIN NEGATIVE (NEGATIVE); URINE BLOOD NEGATIVE; URINE KETONE NEGATIVE (NEGATIVE); URINE LEUKOCYTE NEGATIVE; URINE NITRATE NEGATIVE; URINE PROTEIN NEGATIVE (NEGATIVE); URINE UROBILINOGEN 0.2 E.U./dl
[2024-08-31 04:20] VITALS: BP 135/64; O2SAT 98
[2024-08-31 08:00] VITALS: BP 150/73; O2SAT 99
[2024-08-31] MEDS ORDERED: ATORVASTATIN CALCIUM 40 MG TABLET PO SCH (09:00)
[2024-08-31] MEDS ORDERED: FOLIC ACID 1 MG TABLET PO SCH (09:00)
[2024-08-31] MEDS ORDERED: GABAPENTIN 400 MG CAPSULE PO SCH (09:00)
[2024-08-31] MEDS ORDERED: ENOXAPARIN SODIUM 40 MG/0.4 ML SYRINGE SUBCUTANEO SCH (09:00)
[2024-08-31] MEDS ORDERED: FAMOTIDINE/PF 20 MG in 0.9 % SODIUM CHLORIDE 8 ML IV PUSH SCH (09:00)
[2024-08-31 15:00] VITALS: BP 135/64; O2SAT 100
[2024-08-31] MEDS ORDERED: FLUCONAZOLE IN NACL,ISO-OSM 200 MG/100 ML PIGGYBAG IV SCH (17:00)
[2024-08-31] MEDS ORDERED: LACTOBACILLUS ACIDOPHILUS 1 CAP CAP PO SCH (17:00)
[2024-08-31] MEDS ORDERED: ZOLPIDEM TARTRATE 5 MG TABLET PO SCH (21:00)
[2024-09-01 00:26] VITALS: BP 103/55; O2SAT 100
[2024-09-01 08:00] VITALS: BP 93/55; O2SAT 96
[2024-09-01] MEDS ORDERED: FLUCONAZOLE IN NACL,ISO-OSM 200 MG/100 ML PIGGYBAG IV SCH (09:00)
[2024-09-01] MEDS ORDERED: CHLORHEXIDINE GLUCONATE 120 ML BOTTLE TOP SCH (09:00)
[2024-09-01 15:36] VITALS: BP 111/58; O2SAT 100
[2024-09-02 00:28] VITALS: BP 139/66; O2SAT 100
[2024-09-02 09:36] VITALS: BP 127/74; O2SAT 97
[2024-09-02 17:57] VITALS: BP 116/75; O2SAT 100
[2024-09-02] MEDS ORDERED: FAMOtidine 20 MG TABLET PO SCH (21:00)
[2024-09-03 01:03] VITALS: BP 111/71; O2SAT 100
[2024-09-03 08:00] VITALS: BP 113/59; O2SAT 100
[2024-09-03] MEDS ORDERED: MIDAZOLAM HCL 2 MG/2 ML VIAL IV ONE (13:00)
[2024-09-03] MEDS ORDERED: fentaNYL CITRATE 50 MCG/ML AMPUL IV PUSH ONE (13:00)
[2024-09-03] MEDS ORDERED: DIPHENHYDRAMINE HCL 50 MG/ML VIAL 1ML IV ONE (13:00)
[2024-09-03 17:00] VITALS: BP 109/65; O2SAT 100
[2024-09-04 01:07] VITALS: BP 123/59; O2SAT 100
[2024-09-04 08:19] VITALS: BP 119/55; O2SAT 100
[2024-09-04] MEDS ORDERED: FLUCONAZOLE 200 MG TABLET PO SCH (09:00)
[2024-09-04] MEDS ORDERED: HYDROXYCHLOROQUINE SULFATE 200 MG TABLET PO NR (14:45)
[2024-09-04 18:39] VITALS: BP 126/71; O2SAT 96
[2024-09-05] VITALS: BP 123/70; O2SAT 98
[2024-09-05 07:50] LABS: ALBUMIN 2.9 gm/dL (3.4-5.0); BILIRUBIN TOTAL 0.33 mg/dL (0.3-1.2); CALCIUM 9.5 mg/dL (8.5-10.1); CREATININE SERUM 0.75 mg/dL (0.55-1.02); GFR 77.31; GLOBULINA 3.1 G/DL (2.4-3.5); POTASSIUM 4.48 mEq/L (3.5-5.1)
[2024-09-05 07:54] LABS: HEMATOCRIT 28.6 % (36.0-45.00); MEAN CELL VOLUME 98.3 fL (80.00-100.00); MEAN CORPUSCULAR HGB CONC 33.7 g/dl (32.0-36.0); PLATELET COUNT 252 K/uL (150-450); RED BLOOD COUNT 2.91 M/uL (4.00-6.00); RED CELL DISTRIBUTION WIDTH 15.2 % (11.5-14.5)
[2024-09-05 08:15] LABS: HEMOGLOBIN 9.6 g/dL (12.0-15.00); MEAN CORPUSCULAR HEMOGLOBIN 32.9 pg (27.00-32.0)
[2024-09-05] MEDS ORDERED: HYDROXYCHLOROQUINE SULFATE 200 MG TABLET PO SCH (09:00)
[2024-09-05] MEDS ORDERED: SOD FERRIC GLUC COMPLX/SUCROSE 62.5 MG in 0.9 % SODIUM CHLORIDE 50 ML IV SCH (09:00)
[2024-09-05 09:07] VITALS: BP 122/71; O2SAT 98
[2024-09-05] MEDS ORDERED: ORPHENADRINE CITRATE 100 MG TABLET PO SCH (17:00)
[2024-09-05 18:04] VITALS: BP 134/75; O2SAT 100
[2024-09-06 00:30] VITALS: BP 125/71; O2SAT 98
[2024-09-06 11:59] VITALS: BP 156/78; O2SAT 94
[2024-09-06] MEDS ORDERED: MULTIVIT INFUSN,ADULT 4,VIT K 10 ML in DEXTROSE 5 % IN WATER 500 ML IV SCH (13:30)
[2024-09-06 16:00] VITALS: BP 142/63; O2SAT 96
[2024-09-06] MEDS ORDERED: MULTIVIT INFUSN,ADULT 4,VIT K 10 ML VIAL IV SCH (17:00)
[2024-09-07 01:27] VITALS: BP 140/62; O2SAT 97
[2024-09-07 08:00] VITALS: BP 139/65; O2SAT 99
[2024-09-07 16:48] VITALS: BP 138/73; O2SAT 99
[2024-09-08] VITALS: BP 153/55; O2SAT 100
[2024-09-08 06:53] LABS: INR 1.04; PROTHROMBIN TIME 11.3 SECONDS (9.0-11.5)
[2024-09-08 07:05] LABS: HEMATOCRIT 25.6 % (36.0-45.00); MEAN CELL VOLUME 95.1 fL (80.00-100.00); MEAN CORPUSCULAR HGB CONC 35.3 g/dl (32.0-36.0); PLATELET COUNT 220 K/uL (150-450); RED BLOOD COUNT 2.69 M/uL (4.00-6.00); RED CELL DISTRIBUTION WIDTH 15.4 % (11.5-14.5)
[2024-09-08 07:15] LABS: PARTIAL THROMBOPLASTIN TIME < 20.0 SECONDS (22.0-34.0)
[2024-09-08 07:16] LABS: MEAN CORPUSCULAR HEMOGLOBIN 33.4 pg (27.00-32.0)
[2024-09-08] MEDS ORDERED: BUPIVACAINE HCL 30 ML VIAL IJ ONE (10:15)
[2024-09-08] MEDS ORDERED: LIDOCAINE HCL 1%/EPINEPHRINE 20ML VIAL IJ ONE (10:15)
[2024-09-08] MEDS ORDERED: POVIDONE-IODINE 118 ML BOTT TOP ONE (10:15)
[2024-09-08] MEDS ORDERED: OxyCODONE HCL 5 MG TABLET (ROXICODONE) PO PRN (10:45)
[2024-09-08] MEDS ORDERED: MORPHINE SULFATE 4 MG/ML CARTRIDGE IV PRN (10:45)
[2024-09-08 16:00] VITALS: BP 142/55; O2SAT 99
[2024-09-09] VITALS: BP 149/70; O2SAT 95
[2024-09-09 08:00] VITALS: BP 133/73; O2SAT 98
[2024-09-09 16:00] VITALS: BP 134/74; O2SAT 96
[2024-09-10 00:10] VITALS: BP 133/78; O2SAT 98
[2024-09-10 07:34] LABS: HEMATOCRIT 26.7 % (36.0-45.00); HEMOGLOBIN 9.4 g/dL (12.0-15.00); MEAN CELL VOLUME 96.4 fL (80.00-100.00); MEAN CORPUSCULAR HEMOGLOBIN 33.7 pg (27.00-32.0); PLATELET COUNT 214 K/uL (150-450); RED BLOOD COUNT 2.77 M/uL (4.00-6.00); RED CELL DISTRIBUTION WIDTH 15.8 % (11.5-14.5)
[2024-09-10 08:06] LABS: ALBUMIN 2.5 gm/dL (3.4-5.0); CREATININE SERUM 0.8 mg/dL (0.55-1.02); GFR 71.76; PHOSPHOROUS 2.2 mg/dL (2.5-4.9); POTASSIUM 3.71 mEq/L (3.5-5.1)
[2024-09-10 08:30] VITALS: BP 119/71; O2SAT 99
[2024-09-10 08:34] LABS: MAGNESIUM 1.3 mg/dL (1.8-2.4)
[2024-09-10] MEDS ORDERED: MAGNESIUM SULFATE IN WATER 4 GM/100 ML PIGGYBACK IV NR (10:45)
[2024-09-10 16:59] VITALS: BP 146/80; O2SAT 100
[2024-09-10] MEDS ORDERED: GABAPENTIN 300 MG CAPSULE PO SCH (17:15)
[2024-09-10] MEDS ORDERED: LIDOCAINE 5% 1 PATCH ADH. TOP SCH (23:45)
[2024-09-11 00:40] VITALS: BP 136/68; O2SAT 100
[2024-09-11 08:14] VITALS: BP 128/70; O2SAT 98
[2024-09-11] MEDS ORDERED: LIDOCAINE 1 EACH ADH..PATCH TOP SCH (09:00)
[2024-09-11] MEDS ORDERED: LIDOCAINE 5% 1 PATCH ADH. TOP SCH (09:00)
[2024-09-11 16:00] VITALS: BP 152/81; O2SAT 100
[2024-09-12] VITALS: BP 124/67; O2SAT 96
[2024-09-12 08:30] VITALS: BP 127/64; O2SAT 100
[2024-09-12] MEDS ORDERED: LIDOCAINE PAIN1 EACH TOP (13:25)
[2024-09-12] MEDS ORDERED: LIPITOR40 M1 PO (13:25)
[2024-09-12] MEDS ORDERED: GABAPENTIN300 MG PO (13:25)
[2024-09-12] MEDS ORDERED: HYDROXYCHLOROQ200 MG PO (13:25)
[2024-09-12] MEDS ORDERED: NORFLEX100MG PO (13:25)
[2024-09-12] MEDS ORDERED: FARXIGA5 MG PO (13:25)
[2024-09-12] MEDS ORDERED: INTEGRA PLUS C1 EACH PO (13:25)
[2024-09-12] MEDS ORDERED: ZOLPIDEM TARTRAT5 MG PO (13:25)
[2024-09-12] MEDS ORDERED: FOLIC ACID1 MG PO (13:25)
[2024-09-12] MEDS ORDERED: FAMOTIDINE20 MG PO (13:25)
[2024-09-12] MEDS ORDERED: LIDOCAINE 1 EACH ADH..PATCH TOP SCH (21:00)
== END 2024-09-12 14:33 | disposition home or self-care (01) | DRG 329 ==
LOC: ER 17:44 → SURH 23:23 → MEDJ 23:23 → SURG 23:23 → SURH 09-02 12:46 → O/R 09-09 13:37 → SURH 09-09 13:39
PROVIDERS: Emergency Medicine; Surgery; ADMIT Internal Medicine; ATTEND Internal Medicine
PROC: BW21ZZZ Computerized Tomography (CT Scan) of Abdomen and Pelvis (ICD-10-PCS; 2024-08-30)
PROC: 02HV33Z Insertion of Infusion Device into Superior Vena Cava, Percutaneous Approach (ICD-10-PCS; 2024-09-01)
PROC: 0DJD8ZZ Inspection of Lower Intestinal Tract, Via Natural or Artificial Opening Endoscopic (ICD-10-PCS; 2024-09-03)
PROC: BW21YZZ Computerized Tomography (CT Scan) of Abdomen and Pelvis using Other Contrast (ICD-10-PCS; 2024-09-05)
PROC: 0D9W0ZZ Drainage of Peritoneum, Open Approach (ICD-10-PCS; 2024-09-08)
PROC: 0W9F0ZZ Drainage of Abdominal Wall, Open Approach (ICD-10-PCS; 2024-09-08)
PROC: 0DW807Z Revision of Autologous Tissue Substitute in Small Intestine, Open Approach (ICD-10-PCS; principal; 2024-09-08 13:15)
DX: K94.19 Other complications of enterostomy (principal); K65.1 Peritoneal abscess; L02.211 Cutaneous abscess of abdominal wall; K91.870 Postprocedural hematoma of a digestive system organ or structure following a digestive system procedure; M54.2 Cervicalgia; M62.830 Muscle spasm of back; J02.9 Acute pharyngitis, unspecified; E83.42 Hypomagnesemia; E11.40 Type 2 diabetes mellitus with diabetic neuropathy, unspecified; M35.00 Sjogren syndrome, unspecified; Y83.8 Other surgical procedures as the cause of abnormal reaction of the patient, or of later complication, without mention of misadventure at the time of the procedure; Z87.891 Personal history of nicotine dependence; Z79.84 Long term (current) use of oral hypoglycemic drugs

== ENCOUNTER 2025-01-21 10:15 | Inpatient (IN) | payer OTHER ==
[~2025-01-21] VITALS: Ht 152.4 cm; Wt 77.1 kg
[~2025-01-21 10:15] MED LIST changes: +FAMOTIDINE20 MG PO; +GABAPENTIN400 MG PO; +INTEGRA PLUS C1 EACH PO; +LIDOCAINE PAIN1 EACH TOP; +LIPITOR40 M1 PO; +NORFLEX100MG PO
[2025-01-21 12:14] LABS: INR 1.02
[2025-01-21 12:41] LABS: ALT/SGPT 27.0 U/L (12-78); AST/SGOT 13.0 U/L (15-37); BILIRUBIN TOTAL 0.88 mg/dL (0.3-1.2); BUN CREA RATIO 26.0 (7.0-25.0); CREATININE SERUM 1.17 mg/dL (0.55-1.02); GFR 46.14; GLOBULINA 3.2 G/DL (2.4-3.5); GLUCOSE FASTING 116.0 mg/dL (65-100); OSMOLALITY SERUM 294.0 MOSM/KG (275-295)
[2025-01-21 14:13] LABS: URINE APPEARANCE Clear; URINE BILIRRUBIN Negative (NEGATIVE); URINE BLOOD Negative; URINE COLOR Yellow; URINE KETONE Negative (NEGATIVE); URINE LEUKOCYTE Small; URINE NITRATE Negative; URINE PROTEIN Negative (NEGATIVE); URINE UROBILINOGEN 0.2 E.U./dl
[2025-01-21 14:16] LABS: URINE BACTERIA 112.7 uL (0.0-1933); URINE EPITHELIAL CELLS 18.7 uL (0.0-38.8); URINE WBC 23.8 uL (0.0-23.2)
[2025-01-21 14:18] LABS: URINE CAST 1.17 uL (0.0-1.40); URINE GLUCOSE 100 MG/DL (NEGATIVE); URINE RBC 1.4 uL (0.0-20.8)
[2025-01-26] MEDS ORDERED: CEFTRIAXONE SODIUM 2,000 MG VIAL ONE (06:49)
[2025-01-26] MEDS ORDERED: METRONIDAZOLE/SODIUM CHLORIDE 500 MG/100 ML PIGGYBACK IV ONE (06:49)
[2025-01-26] MEDS ORDERED: BUPIVACAINE HCL/MPF 0.5% 30ML VIAL ONE (07:08)
[2025-01-26] MEDS ORDERED: POVIDONE-IODINE 118 ML BOTT TOP ONE (07:08)
[2025-01-26] MEDS ORDERED: LIDOCAINE HCL 1%/EPINEPHRINE 20ML VIAL IJ ONE (07:08)
[2025-01-26] MEDS ORDERED: CHLORHEXIDINE GLUCONATE 120 ML BOTTLE TOP ONE (07:11)
[2025-01-26] MEDS ORDERED: DEXTROSE 50 % IN WATER 0.5 G/ML VIAL IV PRN (10:15)
[2025-01-26] MEDS ORDERED: ONDANSETRON HCL 2 MG/ML VIAL IV PRN (10:15)
[2025-01-26] MEDS ORDERED: 0.9 % SODIUM CHLORIDE 1,000 ML IV SCH (10:15)
[2025-01-26] MEDS ORDERED: MORPHINE SULFATE 4 MG/ML CARTRIDGE IV PRN (10:15)
[2025-01-26] MEDS ORDERED: OxyCODONE HCL 5 MG TABLET (ROXICODONE) PO PRN (10:15)
[2025-01-26] MEDS ORDERED: HYOSCYAMINE SULFATE 0.125 MG TAB.SUBL SL SCH (13:00)
[2025-01-26 13:37] LABS: BASO % 0.3 % (0.1-1.2); EOS # 0.01 (0.04-0.54); EOS % 0.1 % (0.7-7.0); LYMPH # 1.09 (1.18-3.74); LYMPH % 7.3 % (19.3-53.1); MEAN PLATELET VOLUME 13.00 fl (9.4-12.4); MONO # 0.59 (0.24-0.82); MONO % 3.9 % (4.7-12.5); NEUT # 13.22 (1.56-6.13); NEUT % 88.1 % (34.0-71.1); RED CELL DISTRIBUTION WIDTH 11.7 % (11.6-14.4)
[2025-01-26] MEDS ORDERED: ACETAMINOPHEN 500 MG GEL..CAP PO SCH (14:00)
[2025-01-26 14:25] LABS: BUN CREA RATIO 28.0 (7.0-25.0); CREATININE SERUM 1.27 mg/dL (0.55-1.02); GFR 41.97; GLUCOSE FASTING 172.0 mg/dL (65-100); OSMOLALITY SERUM 297.0 MOSM/KG (275-295)
[2025-01-26 14:32] VITALS: BP 140/60; O2SAT 96
[2025-01-26] MEDS ORDERED: METOCLOPRAMIDE HCL 5 MG/ML VIAL IV SCH (17:00)
[2025-01-26] MEDS ORDERED: GABAPENTIN 300 MG CAPSULE PO SCH (17:00)
[2025-01-26 17:14] VITALS: BP 130/68; O2SAT 97
[2025-01-26] MEDS ORDERED: FAMOTIDINE/PF 20 MG/2 ML VIAL IV PUSH SCH (21:00)
[2025-01-26] MEDS ORDERED: CELECOXIB 200 MG CAPSULE PO SCH (21:00)
[2025-01-27 01:42] VITALS: BP 137/74; O2SAT 97
[2025-01-27 06:12] LABS: BASO % 0.5 % (0.1-1.2); EOS # 0.11 (0.04-0.54); EOS % 1.1 % (0.7-7.0); LYMPH # 1.03 (1.18-3.74); LYMPH % 9.8 % (19.3-53.1); MEAN PLATELET VOLUME 12.60 fl (9.4-12.4); MONO # 0.77 (0.24-0.82); MONO % 7.4 % (4.7-12.5); NEUT # 8.47 (1.56-6.13); NEUT % 80.9 % (34.0-71.1); RED CELL DISTRIBUTION WIDTH 11.6 % (11.6-14.4)
[2025-01-27 07:05] LABS: BUN CREA RATIO 25.0 (7.0-25.0); CREATININE SERUM 0.83 mg/dL (0.55-1.02); GFR 68.57; GLUCOSE FASTING 141.0 mg/dL (65-100); OSMOLALITY SERUM 294.0 MOSM/KG (275-295)
[2025-01-27 08:37] VITALS: BP 113/51; O2SAT 96
[2025-01-27] MEDS ORDERED: MAGNESIUM SULFATE IN WATER 4 GM/100 ML PIGGYBACK IV NR (09:00)
[2025-01-27] MEDS ORDERED: LACTOBACILLUS ACIDOPHILUS 1 CAP CAP PO SCH (09:00)
[2025-01-27] MEDS ORDERED: SOD FERRIC GLUC COMPLX/SUCROSE 62.5 MG in 0.9 % SODIUM CHLORIDE 50 ML IV SCH (09:00)
[2025-01-27] MEDS ORDERED: ENOXAPARIN SODIUM 40 MG/0.4 ML SYRINGE SUBCUTANEO SCH (17:00)
[2025-01-27 17:13] VITALS: BP 110/56; O2SAT 98
[2025-01-28] VITALS: BP 108/62; O2SAT 98
[2025-01-28] MEDS ORDERED: DEXTROSE 50 % IN WATER 0.5 G/ML VIAL IV PRN (08:45)
[2025-01-28] MEDS ORDERED: INSULIN LISPRO 1,000 UNIT/10 ML UNITS SUBCUTANEO PRN (08:45)
[2025-01-28] MEDS ORDERED: ENOXAPARIN SODIUM 40 MG/0.4 ML SYRINGE SUBCUTANEO SCH (09:00)
[2025-01-28 09:07] VITALS: BP 125/74; O2SAT 97
[2025-01-28] MEDS ORDERED: LOPERAMIDE HCL 2 MG CAPSULE PO STA (13:08)
[2025-01-28] MEDS ORDERED: LOPERAMIDE HCL 2 MG CAPSULE PO SCH (17:00)
[2025-01-28 17:23] VITALS: BP 110/65; O2SAT 97
[2025-01-29 00:54] VITALS: BP 120/75; O2SAT 100
[2025-01-29] MEDS ORDERED: INTESTINEX680 M1 PO (07:06)
[2025-01-29] MEDS ORDERED: DIPHENOXYLATE-1 EACH PO (07:07)
[2025-01-29] MEDS ORDERED: TRAM1TAB98 PO (07:07)
[2025-01-29] MEDS ORDERED: PROTONIX40 MG PO (07:08)
[2025-01-29] MEDS ORDERED: QUESTRAN LIGHT210 GM PO (07:08)
[2025-01-29 08:11] LABS: BASO % 0.3 % (0.1-1.2); EOS # 0.44 (0.04-0.54); EOS % 6.9 % (0.7-7.0); LYMPH # 1.37 (1.18-3.74); LYMPH % 21.4 % (19.3-53.1); MEAN PLATELET VOLUME 12.10 fl (9.4-12.4); MONO # 0.60 (0.24-0.82); MONO % 9.4 % (4.7-12.5); NEUT # 3.95 (1.56-6.13); NEUT % 61.7 % (34.0-71.1); RED CELL DISTRIBUTION WIDTH 11.6 % (11.6-14.4)
[2025-01-29] MEDS ORDERED: LOPERAMIDE2 M1 PO (08:19)
== END 2025-01-29 12:47 | disposition home or self-care (01) | DRG 331 ==
LOC: SURH 01-26 05:23 → O/R 01-26 05:23 → SURG 01-26 10:15 → SURH 01-26 13:28 → SURG 01-26 19:45 → SURH 01-27 00:16
PROVIDERS: ADMIT Surgery; ATTEND Surgery
PROC: 0WQF4ZZ Repair Abdominal Wall, Percutaneous Endoscopic Approach (ICD-10-PCS; 2025-01-26)
PROC: 0DNW4ZZ Release Peritoneum, Percutaneous Endoscopic Approach (ICD-10-PCS; 2025-01-26)
PROC: 0DCQ8ZZ Extirpation of Matter from Anus, Via Natural or Artificial Opening Endoscopic (ICD-10-PCS; 2025-01-26)
PROC: 0DBB4ZZ Excision of Ileum, Percutaneous Endoscopic Approach (ICD-10-PCS; principal; 2025-01-26 19:45)
DX: Z43.2 Encounter for attention to ileostomy (principal); K66.0 Peritoneal adhesions (postprocedural) (postinfection); K56.41 Fecal impaction; K43.5 Parastomal hernia without obstruction or gangrene